=== PATIENT | female | born 1930 | race Caucasian/White ===

== ENCOUNTER 2017-06-04 13:28 | Emergency (ER) | payer MEDICARE, BC ==
[2017-06-04 13:59] LABS: #Basophils 0.1 thou/uL (0.0-0.2); #Eosinphils 0.1 thou/uL (0.0-0.7); #Lymphocytes 1.9 thou/uL (1.20-3.40); #Monocytes 0.5 thou/uL (0.11-0.59); #Neutrophils 4.1 thou/uL (1.40-6.50); %Basophils 0.8 % (0.0-1.0); %Lymphocytes 28.7 % (21.0-51.0); %Monocytes 8.2 % (0.0-10.0); Mean Platelet Volume 7.5 fL (7.4-10.4); Red Blood Cell (RBC) Count 4.19 mill/uL (4.20-5.40); White Blood Cell (WBC) Count 6.6 thou/uL (4.8-10.8)
[2017-06-04 14:25] LABS: ALT (SGPT) 10 U/L (8-55); AST (SGOT) 15 U/L (5-34); Alkaline Phosphatase 73 U/L (40-150); Anion Gap 13 mmol/L (10-20); BUN (Urea Nitrogen) 22 mg/dL (9.8-20.1); Bilirubin, Total 0.3 mg/dL (0.2-1.2); CK (CPK) 67 U/L (29-168); Calc. Creatinine Clearance 0 mL/min (70-130); Calcium 8.9 mg/dL (7.8-10.44); Carbon Dioxide 23 mmol/L (23-31); Chloride 105 mmol/L (98-107); Estimated GFR-MDRD 56; Globulin 3.4 g/dL (2.4-3.5); Protein, Total 7.6 g/dL (6.0-8.3)
[2017-06-04 14:30] LABS: Troponin I Less than 0.010 ng/mL (< 0.028)
[2017-06-04 15:07] LABS: Bilirubin Negative (Negative); Blood, Urine Negative (Negative); Glucose, Urine (Dipstick) Negative (Negative); Ketone, Urine Negative (Negative); Nitrite Negative (Negative); Protein, Urine (Dipstick) Negative (Neg-Trace); Urobilinogen 0.2 mg/dL (0.2-1.0)
[2017-06-04] MEDS ORDERED: Meclizine HCl 25 MG TAB ONE (15:15)
--- NOTE | 2017-06-04 15:30 | RAD ---
CHEST ONE VIEW: History: 87-year-old female with weakness, dizziness, slurred speech, Comparison: 06-29-09 FINDINGS: Atherosclerosis of the aorta. Old granulomatous disease. Heart size is within normal limits. The pat gs are clear. IMPRESSION: No acute intrathoracic disease. POS: OFF
--- NOTE | 2017-06-04 15:45 | CT ---
CT HEAD NONCONTRAST: Date: 06/04/17 COMPARISON: 06/29/09. INDICATION: Emergency exam, dizziness, slurred speech. FINDINGS: There is redemonstration of moderate chronic microvascular ischemic disease of the cerebral white ma tter. Ventricular system is age-appropriate in size. There is no intracranial hemorrhage, mass effec t, or midline shift. IMPRESSION: 1. No acute intracranial hemorrhage or mass effect. 2. Moderate chronic microvascular ischemic disease. POS: HODA
== END 2017-06-04 16:21 | disposition home or self-care (01) ==
LOC: ERS 13:28
DX: R42 Dizziness and giddiness (principal); I10 Essential (primary) hypertension
CPT/HCPCS: 36415; 70450; 71010; 80053; 81003; 82553; 84484; 85025; 93005; 94760

== ENCOUNTER 2017-08-23 13:55 | Inpatient (IN) | payer MEDICARE, BC ==
[2017-08-23] MEDS ORDERED: Albuterol Sulfate 2.5 mg/3 ml Neb ONE (14:16)
[2017-08-23 14:21] LABS: Actual Bicarbonate (HCO3a) 22.5 mEq/L (22-26); Base Excess (BEa) -0.4 mEq/L (0 (+/-) 2.5); CO2 Tension 29.8 mmHg (35.0-45.0); Calcium, Ionized 1.1 mmol/L (1.12-1.30); Hemoglobin (Hb) 7.9 g/dL (12.0-16.0); O2 Tension (PaO2) 105.5 mmHg (80.0-100.0)
[2017-08-23 14:32] LABS: Analyzer IN Cardio ER; Puncture Site RRA
[2017-08-23] MEDS ORDERED: Dexamethasone 4 mg/ml Vial ONE (14:36)
[2017-08-23] MEDS ORDERED: Magnesium Sulfate 2 GM/NS 0.9% 50 ML BAG ONE (14:37)
[2017-08-23 14:53] LABS: PTT 34.6 SEC (22.9-36.1)
[2017-08-23 14:56] LABS: Hemoglobin 10.4 g/dL (12.0-16.0); Mean Corpuscular HGB CONC 32.7 g/dL (32.0-36.0); Mean Corpuscular Hemoglobin 30.8 pg (27.0-31.0); Mean Platelet Volume 6.8 fL (7.4-10.4); Platelet Count 507 thou/uL (130-400); Red Blood Cell (RBC) Count 3.37 mill/uL (4.20-5.40); White Blood Cell (WBC) Count 17.9 thou/uL (4.8-10.8)
[2017-08-23 14:58] LABS: ALT (SGPT) 28 U/L (8-55); AST (SGOT) 18 U/L (5-34); Albumin 3.2 g/dL (3.4-4.8); Alkaline Phosphatase 132 U/L (40-150); Anion Gap 19 mmol/L (10-20); BUN (Urea Nitrogen) 12 mg/dL (9.8-20.1); Bilirubin, Total 0.4 mg/dL (0.2-1.2); CK (CPK) 71 U/L (29-168); Calc. Creatinine Clearance 0 mL/min (70-130); Calcium 8.5 mg/dL (7.8-10.44); Carbon Dioxide 22 mmol/L (23-31); Chloride 104 mmol/L (98-107); Estimated GFR-MDRD 62; Globulin 3.3 g/dL (2.4-3.5); Glucose 109 mg/dL (83-110); INR-International Normal Ratio 1.1; Lipase 4 U/L (8-78); Potassium 3.8 mmol/L (3.5-5.1); Protein, Total 6.5 g/dL (6.0-8.3); Prothrombin Time 13.9 SEC (12.0-14.7); Sodium 141 mmol/L (136-145)
--- NOTE | 2017-08-23 15:00 | RAD ---
PORTABLE CHEST 1 VIEW: DATE: 08/23/17. TIME: 2:35 p.m. HISTORY: Shortness of breath. FINDINGS: Comparison is made with the exam of 06/04/17. There has been interval development of patchy consolidation in the right lower lobe with accompanying right pleural effusion. The heart size is stable. The aorta is tortuous. The left lung is unremar kable. IMPRESSION: Right-sided pneumonia. POS: BYRON
[2017-08-23 15:02] LABS: CKMB 1.2 ng/mL (0-6.6); Troponin I Less than 0.010 ng/mL (< 0.028)
[2017-08-23 15:08] LABS: D-Dimer Test 3.49 *mcg/mL (0.27-0.43)
[2017-08-23 15:20] LABS: Band 6 % (5-11); Lymphocytes 4 % (21-51); MDiff Complete? YES; Metamyelocyte 1 % (0-0); Monocytes 8 % (0-10); Neutrophil 81 % (42-75); PLT Morphology Comment Appears Increased
[2017-08-23] MEDS ORDERED: cefTRIAXone\\ROCEPHIN 1 GM, Syringe 0.4 ML in Sterile Water 9.6 ML SLOW IVP SCH (16:45)
[2017-08-23 17:47] LABS: Bilirubin Negative (Negative); Blood, Urine Negative (Negative); Clarity CLEAR (Clear); Glucose, Urine (Dipstick) Negative (Negative); Leukocyte Large (Negative); Nitrite Negative (Negative); Protein, Urine (Dipstick) Negative (Neg-Trace); Specific Gravity, Urine 1.016 (1.002-1.036)
[2017-08-23 17:49] LABS: Bacteria/HPF None Seen HPF (None Seen); Hyaline Casts/LPF 0-3 HYALINE CAST LPF (0-3 Hyaline); Squamous Epithelial 0-3 HPF (0-3); WBC/HPF 21-50 HPF (0-3)
--- NOTE | 2017-08-23 17:51 | HP ---
CHIEF COMPLAINT: Shortness of breath. HISTORY OF PRESENT ILLNESS: This is an 87-year-old elderly white female who is living by herself at home. She has been having some cough and cold for the past 1 week and last , she went to [facility] physician's office who initially tested the patient for influenza which was negative, but s he prophylactically treated her with Tamiflu. The patient was having persistent fevers of 102 at [place] e associated with worsening shortness of breath and weakness. She decided to come to the ER today al erwin with her daughter and she was noted to be very hypoxic in the 80s on room air. The patient was s tarted on nasal cannula oxygen and a chest x-ray was done showing an evidence of pneumonia on the rig ht lung. She has elevated white count of 17,000. The patient looked pretty septic. She denies [place] sood any chest pain at this time. She continues to have shortness of breath and cough and nonproductiv e sputum. The patient has no history of hypertension which is well controlled. She did not have any recent hos pitalization, but she does have a previous hospitalization for food poisoning. PAST MEDICAL HISTORY: 1. History of hypertension. 2. Osteoarthritis. 3. Chronic low back pains. PAST SURGICAL HISTORY: 1. Appendectomy. 2. Tonsillectomy. 3. Partial hysterectomy. 4. Cholecystectomy. 5. Left knee replacement surgery. 6. Hernia repair and cataract surgery. SOCIAL HISTORY: The patient is not a known smoker. No history of alcohol, no history of illicit jermain g use. She lives independently by herself. FAMILY HISTORY: No significant family history of any coronary artery disease or any cancers. HOME MEDICATIONS: 1. Alprazolam 0.5 mg p.r.n. for anxiety. 2. Amlodipine 10 mg p.o. daily. 3. Aspirin 81 mg p.o. daily. 4. Biotin 2000 mcg capsule daily. 5. Calcium carbonate 1 tablet daily. ALLERGIES: ADHESIVE TAPES and HYDROCODONE. REVIEW OF SYSTEMS: All 10 systems are reviewed with the patient thoroughly and found to be negative at this time systems reviewed HEENT, CVS, NAIL FEEDER, respiratory, GI, , musculoskeletal, skin, neurologic , psychiatric. The following complete review of systems was negative, unless otherwise mentioned in the HPI or below: Constitutional: Weight loss or gain, sense of well-being, ability to conduct usual activities, exerc ise tolerance. Skin/Breast: Rash, itching, changes in hair growth or loss, nail changes, breast lumps, tenderness, swelling, nipple discharge. Eyes: Vision, double vision, tearing, blind spots, pain. ENT/Mouth: Headaches (location, time of onset, duration, precipitating factors), vertigo, lightheadedness, injury. Vision, double vision, tearing, blind spots, pain, nose b leeding, colds, obstruction, discharge, dental difficulties, gingival bleeding, dentures, neck stiffn ess, pain, tenderness, masses in thyroid or other areas Cardiovascular: Precordial pain, substernal distress, palpitations, syncope, dyspnea on exertion, or thopnea, nocturnal paroxysmal dyspnea, edema, cyanosis, hypertension, heart murmurs, varicosities, ph lebitis, claudication. Respiratory: Pain, shortness of breath, wheezing, stridor, cough, hemoptysis, fever or night sweats Gastrointestinal: Poor appetite, dysphagia, indigestion, abdominal pain, heartburn, eructation, naus ea, vomiting, hematemesis, jaundice, constipation, or diarrhea, abnormal stools (cami-colored, tarry, bloody, greasy, foul smelling), flatulence, hemorrhoids, recent changes in bowel habits. Genitourinary: Urgency, frequency, dysuria, nocturia, hematuria, polyuria, oliguria, unusual (or kehinde nge in) color of urine, stones, hesitancy, change in size of stream, dribbling, acute retention or in continence, libido, potency. Musculoskeletal: Pain, swelling, redness or heat of muscles or joints, limitation, of motion, muscular weakness, atrophy, cramps. Neurologic/Psychiatric: Convulsions, paralyses, tremor, incoordination, parasthesias, difficulties w ith memory of speech, sensory or motor disturbances, or muscular coordination (ataxia, tremor), emoti onal problems, anxiety, depression, previous psychiatric care, unusual perceptions, hallucinations. Allergy/Immunologic: Skin rash, anemia, bleeding tendency, polydipsia, polyuria, intolerance to heat or cold. PHYSICAL EXAMINATION: VITAL SIGNS: Blood pressure is 110/80, heart rate is 88, respiratory rate is 20, saturation is 92% o n 3 liters. GENERAL: The patient is seen lying in the bed supine, does not appear to be in any acute distress at this time. HEENT: Atraumatic, normocephalic. PERRLA. Extraocular movements are intact. Oral mucosa is pink a nd moist. CARDIOVASCULAR: S1, S2 normal. No murmurs, rubs or gallops. LUNGS: Bilateral air entry was reduced with wheezing noted in the right lung, greater than the left lung with dullness and percussion on the right lower lung. No signs of any acute respiratory distres s were noted. No use of any accessory muscles of respiration. ABDOMEN: Soft and nontender. No guarding, no rebound tenderness. Bowel sounds normal. MUSCULOSKELETAL: No calf tenderness or pedal edema. EXTREMITIES: No joint tenderness. MUSCULOSKELETAL: No joint swelling. SKIN: No cyanosis, no erythema, no rash, no pallor. NAIL FEEDER: Cranial nerve examination II-XII intact. No focal deficits were noted. NECK: No thyromegaly. No lymphadenopathy was noted. No JVD was noted. PSYCHIATRIC: No signs of suicidal ideation. No signs of junior. No signs of depression. LABORATORY DATA: Sodium is 141, potassium 3.8, chloride is 104, bicarbonate is 22, BUN is 12, creati nine 0.87, blood sugar 109. WBC 17.9, hemoglobin is 10.4, hematocrit 31.6, platelets 507. His ABG w as 7.5, pCO2 of 29.8, and pO2 is 205. ASSESSMENT: 1. Acute hypoxic respiratory failure. 2. Acute right lung pneumonia, possibly aspiration type. 3. Hypertension, well controlled. 4. Acute hypoxia, rule out pulmonary embolism. 5. Chronic osteoarthritis. PLAN: 1. The plan is to start the patient on IV fluids at this time, normal saline at 100 mL hour. Rajeev t has evidence of sepsis with elevated white count of 17,000, most likely from pneumonia. We will st art the patient aggressively on IV antibiotics with cefepime 1 gram b.i.d. and levofloxacin 50 mg IV daily. 2. We will start the patient on DuoNebs and albuterol nebulizer treatments as needed. We will close ly monitor the patient. If any worsening, we will start the patient on the BiPAP. 3. The patient has hypoxia which is new. We will continue to titrate oxygen and will continue the p atient on incentive spirometry every 1 hour for 10 minutes. We will encourage the patient to use spi rometry. 4. The patient has elevated D-dimer. The patient has been ordered a CTA to look for any evidence of pulmonary embolism and will start the patient on Lovenox at that time. Patient has no risk factors for PE as she is very mobile at home. 5. We will continue with PT and OT evaluation and look for retirement placement if the patient gets progressively weaker. 6. DVT prophylaxis, Lovenox 40 mg subcu daily. Dictating physician, Nash Mullen, has spent 70 minutes of this patient of this one hour as a critical care time.
[2017-08-23] MEDS ORDERED: Ondansetron HCl/PF 4 MG/2 ML Vial IVP PRN (18:14)
[2017-08-23] MEDS ORDERED: HYDROcodone/Acetaminophen 5/325 mg Tablet PO PRN (18:14)
[2017-08-23] MEDS ORDERED: Senokot 8.6 MG TAB PO PRN (18:14)
[2017-08-23] MEDS ORDERED: Bisacodyl 5 MG TAB PO PRN (18:14)
[2017-08-23] MEDS ORDERED: Guaifenesin DM 100-10/5 ML UDCUP PO PRN (18:14)
--- NOTE | 2017-08-23 18:25 | CT ---
EXAM: CT ANGIOGRAM OF THE CHEST 08/23/17 COMPARISON: 06/25/13 HISTORY: Shortness of breath. Cough x1 week. Intermittent fever. TECHNIQUE: CT angiogram of the chest is performed in the axial plane. Coronal and oblique 3 dimensional reformat ian images are submitted for interpretation. FINDINGS: Nonenlarged prevascular, paratracheal lymph nodes. Stable calcified lymph nodes in the mediastinum. E nlarged right hilar lymph node measuring 2.1 x 1.5 cm. Heart size is normal. No significant pericardi al fluid. Coronary artery calcifications are identified. The thoracic aorta and abdominal aorta have a normal caliber. No periaortic fat stranding. Hypodensit y in the left hepatic lobe measuring 1.5 x 2.2 cm, compatible with a cyst. Remaining solid organs are unremarkable. Small right and trace left sided pleural effusion. Consolidation in both lower lobes is felt to be du e to atelectasis. Component of pneumonia in both lower lobes cannot be excluded. There is opacificati on of right lower lobe bronchi, possibly due to secretions or mucus material. Intrabronchial masses c annot be excluded. A component of the consolidation in the right lower lobe may be due to post obstru ctive atelectasis. Patchy ground glass opacities in the right upper lobe. Trachea and central bronchi are patent. There is mild narrowing of the main stem bronchus. Adequate contrast opacification of the pulmonary arterial system to the level of the segmental arteri es. No filling defect to suggest thromboembolism. IMPRESSION: 1. No evidence of pulmonary artery embolism to the level of segmental arteries. 2. Narrowing of the right main stem bronchus with opacification of right lower lobe bronchi. Fin dings may represent mucus plug or secretions. However, endobronchial lesions cannot be excluded. Ther e is consolidation of the right lower lobe which may be due to atelectasis, pneumonia. Slightly heter ogeneous enhancement is noted suggesting possible areas of parenchymal necrosis. 3. Consolidation of the left lower lobe likely due to atelectasis or pneumonia. 4. Enlarged right hilar lymph node. POS: BYRON
[2017-08-23 19:01] VITALS: BMI 26.6
[2017-08-23] MEDS: Sodium Chloride 0.9% 1,000 ML IV SCH (20:36)
[2017-08-23] MEDS: guaiFENesin ER 600 MG TAB PO SCH (20:39)
[2017-08-23] MEDS: Famotidine/PF 20 mg/2ml Vial SLOW IVP SCH (20:39)
[2017-08-23] MEDS ORDERED: Cefepime 2 GM, Syringe 2.5 ML in Sterile Water 10 ML SLOW IVP SCH (21:00)
[2017-08-23] MEDS ORDERED: Cefepime 2 GM in Sodium Chloride 0.9% 100 ML IVPB SCH (21:00)
[2017-08-24] MEDS: ALPRAZolam 0.5 MG TAB PO PRN ×2 (01:38→17:18)
[2017-08-24] MEDS: Albuterol Sulfate 2.5 mg/3 ml Neb NEB SCH ×10 (04:53→22:15)
[2017-08-24] MEDS: Sodium Chloride 0.9% 1,000 ML IV SCH (05:15)
[2017-08-24 06:53] LABS: Anion Gap 15 mmol/L (10-20); BUN (Urea Nitrogen) 13 mg/dL (9.8-20.1); Calc. Creatinine Clearance 61 mL/min (70-130); Calcium 8.4 mg/dL (7.8-10.44); Carbon Dioxide 19 mmol/L (23-31); Chloride 108 mmol/L (98-107); Estimated GFR-MDRD 72; Glucose 143 mg/dL (83-110); Potassium 3.8 mmol/L (3.5-5.1); Sodium 138 mmol/L (136-145)
[2017-08-24 07:34] LABS: Band 6 % (5-11); Hemoglobin 9.6 g/dL (12.0-16.0); Lymphocytes 5 % (21-51); MDiff Complete? YES; Mean Corpuscular HGB CONC 33.1 g/dL (32.0-36.0); Mean Corpuscular Volume 93.7 fl (81.0-99.0); Mean Platelet Volume 6.7 fL (7.4-10.4); Monocytes 6 % (0-10); Neutrophil 83 % (42-75); Platelet Count 475 thou/uL (130-400); RBC Distribution Width 13.1 % (11.5-14.5); Red Blood Cell (RBC) Count 3.09 mill/uL (4.20-5.40); White Blood Cell (WBC) Count 15.4 thou/uL (4.8-10.8)
[2017-08-24] MEDS ORDERED: FLU VACC TS2017-18 (>65YR) 0.5 ML SYRINGE IM ONE (09:00)
[2017-08-24] MEDS ORDERED: Cefepime 2 GM, Syringe 2.5 ML in Sterile Water 10 ML SLOW IVP SCH (09:00)
[2017-08-24] MEDS: Amlodipine 10 MG TAB PO SCH (09:47)
[2017-08-24] MEDS: guaiFENesin ER 600 MG TAB PO SCH ×2 (09:47→19:54)
[2017-08-24] MEDS: Calcium Carbonate + Vit D 1 TAB PO SCH (09:48)
[2017-08-24] MEDS: Aspirin 81 mg Enteric Coated Tablet PO SCH (09:48)
[2017-08-24] MEDS: Biotin [Biotin] 2,500 MCG PO SCH (09:54)
[2017-08-24] MEDS: Enoxaparin Sodium 40 MG/0.4 ML SYRINGE SC SCH (10:02)
[2017-08-24] MEDS: Famotidine/PF 20 mg/2ml Vial SLOW IVP SCH ×2 (10:02→19:54)
--- NOTE | 2017-08-24 10:23 | PDOC.PN ---
- Subjective Encounter Start Date: 08/24/17 Encounter Start Time: 07:50 -: old records requested/rev Patient seen and examined. No new complaints. No overnight events - Objective Resuscitation Status: Resuscitation Status FULL:Full Resuscitation MAR Reviewed: Yes Vital Signs & Weight: Vital Signs (12 hours) Temp Pulse Resp BP BP BP Pulse Ox 08/24/17 10:08 92 L 08/24/17 10:05 100 12 08/24/17 09:47 100 122/71 08/24/17 08:00 97.6 F 99 17 122/71 92 L 08/24/17 04:32 97.6 F 119 H 20 135/70 94 L 08/24/17 03:13 116 H 20 96 08/24/17 00:00 98.2 F 120 H 22 H 155/78 H 96 08/23/17 22:50 111 H 20 93 L Weight Weight 160 lb Result Diagrams: 08/24/17 06:07 08/24/17 06:07 Radiology Reviewed by me: Yes Phys Exam - Physical Examination Constitutional: NAD HEENT: PERRLA, moist MMs, sclera anicteric Neck: no JVD, supple Respiratory: no wheezing, no rhonchi right side rales+ Cardiovascular: RRR, no significant murmur, no rub Gastrointestinal: soft, non-tender, no distention, positive bowel sounds Musculoskeletal: no edema, pulses present Neurological: non-focal, normal sensation, moves all 4 limbs Lymphatic: no nodes Psychiatric: normal affect, A&O x 3 Skin: no rash, normal turgor Dx/Plan (1) Acute respiratory failure with hypoxia Code(s): J96.01 - ACUTE RESPIRATORY FAILURE WITH HYPOXIA Status: Acute (2) Right lower lobe pneumonia Code(s): J18.1 - LOBAR PNEUMONIA, UNSPECIFIED ORGANISM Status: Acute (3) Sepsis with acute organ dysfunction Code(s): A41.9 - SEPSIS, UNSPECIFIED ORGANISM; R65.20 - SEVERE SEPSIS WITHOUT SEPTIC SHOCK Status: Acute (4) Anemia, normocytic normochromic Code(s): D64.9 - ANEMIA, UNSPECIFIED Status: Chronic (5) Hypertension Code(s): I10 - ESSENTIAL (PRIMARY) HYPERTENSION Status: Chronic - Plan cont current plan of care, continue antibiotics, respiratory therapy * continue cefepime and change to 2 gm iv bid * continue levaquin * pulmonary consult * medication reviewed as below * symptomatic treatment * follow culture * pt is improving. Review of Systems - Review of Systems Constitutional: negative: fever, chills, sweats, weakness, malaise, other ENT: negative: Ear Pain, Ear Discharge, Nose Pain, Nose Discharge, Nose Congestion, Mouth Pain, Mouth Swelling, Throat Pain, Throat Swelling, Other Respiratory: Cough, SOB with Excertion. negative: Dry, Shortness of Breath, Hemoptysis, Pleuritic Pain, Sputum, Wheezing Cardiovascular: negative: chest pain, palpitations, orthopnea, paroxysmal nocturnal dyspnea, edema, light headedness, other Gastrointestinal: negative: Nausea, Vomiting, Abdominal Pain, Diarrhea, Constipation, Melena, Hematochezia, Other Genitourinary: negative: Dysuria, Frequency, Incontinence, Hematuria, Retention , Other Musculoskeletal: negative: Neck Pain, Shoulder Pain, Arm Pain, Back Pain, Hand Pain, Leg Pain, Foot Pain, Other Skin: negative: Rash, Lesions, Abad, Bruising, Other Neurological: negative: Weakness, Numbness, Incoordination, Change in Speech, Confusion, Seizures, Other - Medications/Allergies Allergies/Adverse Reactions: Allergies Allergy/AdvReac Type Severity Reaction Status Date / Time adhesive tape Allergy Intermediate REDNESS, Verified 02/13/17 13:09 BRUISES EASILY hydrocodone Allergy Mild NOSE RED Verified 02/13/17 13:09 AND ITCHY Medications: Current Medications Hydrocodone Bitart/Acetaminophen ([place] 5/325) 1 tab PO Q4H PRN PRN Reason: Moderate Pain (4-6) Albuterol Sulfate (Ventolin) 2.5 mg NEB Q2HR [facility] Last Admin: 08/24/17 10:10 Dose: Not Given Albuterol/Ipratropium (Duoneb) 3 ml NEB [id number] [facility] Last Admin: 08/24/17 10:05 Dose: 3 ml Alprazolam (Xanax) 0.5 mg PO PRN PRN PRN Reason: Anxiety Last Admin: 08/24/17 01:38 Dose: 0.5 mg Amlodipine Besylate (Norvasc) 10 mg PO DAILY [facility] Last Admin: 08/24/17 09:47 Dose: 10 mg Aspirin (Ecotrin) 81 mg PO DAILY [facility] Last Admin: 08/24/17 09:48 Dose: 81 mg Bisacodyl (Dulcolax) 10 mg PO DAILYPRN PRN PRN Reason: Constipation Calcium/Vitamin D (Caltrate 600 + Vit D) 1 tab PO DAILY [facility] Last Admin: 08/24/17 09:48 Dose: 1 tab Enoxaparin Sodium (Lovenox) 40 mg SC 0900 [facility] Last Admin: 08/24/17 10:02 Dose: 40 mg Famotidine (Pepcid) 20 mg SLOW IVP Q12HR [facility] Last Admin: 08/24/17 10:02 Dose: Not Given Guaifenesin (Mucinex) 1,200 mg PO Q12HR [facility] Last Admin: 08/24/17 09:47 Dose: 1,200 mg Guaifenesin/Dextromethorphan (Robitussin Dm) 15 ml PO Q4H PRN PRN Reason: Cough Levofloxacin 750 mg/ Device 150 mls @ 100 mls/hr IVPB Q2D [facility] Cefepime HCl 2 gm/ Syringe 2.5 (ml/ Sterile Water) 12.5 mls @ 150 mls/hr SLOW IVP Q12HR [facility] Last Admin: 08/24/17 09:48 Dose: 12.5 mls Ondansetron HCl (Zofran) 4 mg IVP Q6H PRN PRN Reason: Nausea/Vomiting Biotin [Biotin] 2, (500 Mcg) 1 each PO DAILY [facility] Last Admin: 08/24/17 09:54 Dose: Not Given Senna (Senokot) 2 tab PO HSPRN PRN PRN Reason: Constipation
--- NOTE | 2017-08-24 15:24 | PQF ---
DATE: 08-24-17 ATTN: DR. RUY WILLIS Please exercise your independent, professional judgment in responding to the clarification form. Clinical indicators are provided on the bottom of this form for your review Please check appropriate box(s): [ ] Aspiration Pneumonia [ x ] Empirically treating Gram Negative Pneumonia [ ] Other diagnosis [ ] Unable to determine In addition, please specify: Present on Admission (POA): [ x] Yes [ ] No [ x] Unable to determine For continuity of documentation, please document condition throughout progress notes and discharge summary. Thank You. CLINICAL INDICATORS - SIGNS / SYMPTOMS / LABS ER DIAGNOSIS: SEPSIS, HYPOXIA, PNEUMONIA ER DOCUMENTATION: PT REPORTS COUGH X 1 WEEK AND SOME INTERMITTENT FEVERS AT HOME. H&P: ACUTE RIGHT LUNG PNEUMONIA, POSSIBLY ASPIRATION TYPE PN DR. WILLIS 08-24-17: ACUTE RLL PNEUMONIA WBC: 08-23-17: 17.9 08-24-17: 15.4 RISK FACTORS: ER DOCUMENTATION: PT REPORTS COUGH X 1 WEEK AND SOME INTERMITTENT FEVERS AT HOME. ER DOCUMENTATION: FEVER, O2 SAT 86% ON RA, SOB , NEG FOR FLU BUT TREATED WITH TAMIFLU AND TOOK FULL COURSE OF MEDICATION TREATMENTS: (08-23-17) ALBUTEROL NEBS, DUONEBS (08-24-17) CEFEPIME IV, LEVAQUIN (OCT) IVF PULMONARY CONSULT (This form is maintained as a part of the permanent medical record) 2014 [employer]. All Rights Reserved [email or web address] Office: [phone] [facility]OSPITALeJsus
--- NOTE | 2017-08-24 15:31 | PQF ---
DATE: 08-24-17 ATTN : DR. RUY WILLIS Please exercise your independent, professional judgment in responding to the clarification form. Clinical indicators are provided on the bottom of this form for your review Please check appropriate box(s): [ ] UTI [ x ] Contaminated urine specimen without UTI [ ] Other diagnosis [ ] Unable to determine In addition, please specify: Present on Admission (POA): [ ] Yes [ ] No [ x ] Unable to determine For continuity of documentation, please document condition throughout progress notes and discharge summary. Thank You. CLINICAL INDICATORS - SIGNS / SYMPTOMS / LABS URINE: 08-23-17: UR LEUKOCYTE ESTERASE: LARGE H URINE WBC: 21-50 H ER DOCUMENTATION: HISTORIAN REPORTS FEVER RISK FACTORS: ER DOCUMENTATION: PT REPORTS COUGH X 1 WEEK AND SOME INTERMITTENT FEVERS AT HOME. PT PUT ON TAMIFLU AND TOOK FULL COURSE OF MEDICATION H&P: PT IN WITH ACUTE HYPOXIC RESPIRATORY FAILURE , PNA, SEPSIS TREATMENT: (MAR) CEFEPIME, IVF, (This form is maintained as a part of the permanent medical record) 2014 [employer] All Rights Reserved [email or web address] Office: [phone] [facility]OSPITALJesus
[2017-08-24] MEDS ORDERED: predniSONE 20 MG TAB PO SCH (19:15)
[2017-08-24] MEDS: Piperacillin/Tazobactam 3.375 GM in Sodium Chloride 0.9% 100 ML IVPB SCH (19:53)
--- NOTE | 2017-08-25 00:01 | CON ---
DATE OF CONSULTATION: 08/24/2017 SERVICE: Pulmonary medicine. REASON FOR CONSULT: Hypoxemia. HISTORY OF PRESENT ILLNESS: The patient is an 87-year-old white female. She was in her usual state of health until roughly 7 days prior to admission. She presented to an urgent care clinic. She was tested for the flu, but it was negative. Either way, because she had a viral prodrome, she was initially on Tamiflu. She completed that course of antiviral medication. She continued to get sicker and sicker throughout the week. As such, she presented to the emergency department yesterday. She was coughing up green sputum, yellow sputum , and clear sputum. She was having fevers to 102 and noted a headache. She did not have the myalgias or rigors. That being said, she was completely uncomfortable. She came to emergency department. She was admitted because of hypoxemia. Overnight, she had a profound improvement in symptoms. She currently denies any fevers, chills, nausea or vomiting or chest discomfort. PAST MEDICAL HISTORY: 1. Hypertension. 2. Osteoarthritis. 3. Chronic low back pain. PAST SURGICAL HISTORY: 1. Appendectomy. 2. Tonsillectomy. 3. Partial hysterectomy. 4. Cholecystectomy. 5. Left knee replacement surgery. 6. Hernia repair. 7. Cataract surgery. SOCIAL HISTORY: She has a minimal smoking history over 60 year ago. She denies any alcohol or illegal drugs use and has no exposure to chemical, dust, asbestos or tuberculosis. She is independent in her ADLs. FAMILY HISTORY: Noncontributory. ALLERGIES: TAPE ADHESIVES and HYDROCODONE. MEDICATIONS LIST: Her inpatient medications were reviewed. Multiple updates were made. REVIEW OF SYSTEMS: General, head, ears, eyes, nose, throat, cardiovascular, respiratory, GI, , musculoskeletal, neurologic and skin is negative except as mentioned in the HPI. PHYSICAL EXAMINATION: VITAL SIGNS: Afebrile, pulse 100, blood pressure 126/71, respirations 18, saturation 93% on 2 liters nasal cannula. GENERAL: The patient is awake, and alert, in no apparent distress. LUNGS: Decent air entry. Crackles and rhonchi are both present. I also hear some wheezing, but more inspiratory. With cough, the wheezing changes in character. HEART: Normal rate. Regular. ABDOMEN: Soft, nontender, nondistended. Bowel sounds are positive. MUSCULOSKELETAL: No cyanosis or clubbing. There is trace of 1+ pitting in the bilateral lower extremities. NEUROLOGIC: Grossly nonfocal. LABORATORY DATA: WBC is down trending to 15.4, hemoglobin 9.6, platelets 475, 000. Neutrophils were 83% with 6% bands. INR 1.1. PH of 7.50, pCO2 of 29, pO2 of 105 on non-rebreather mask at that time. Lactate is negative. Basic metabolic profile is unremarkable. BNP has slightly elevated 113. Liver function studies were unremarkable. Urinalysis is negative. Respiratory culture is unremarkable today. Blood culture x2 and urine culture is negative. There are multiple different species that were identified in a good sputum sample. Influenza A and B were negative. ASSESSMENT: 1. Acute hypoxic respiratory failure. 2. Acute bronchitis, likely secondary to viral illness. 3. Community-acquired pneumonia. 4. Bronchiectasis with acute exacerbation. IMAGING: CT of the chest was reviewed. There was no evidence of pulmonary embolism. The anterior segment of the right upper lobe has some ground glass changes as well as interstitial thickening. There is a consolidating lesion in that area. There is a tree-in-bud opacification throughout the right middle lobe, and the right lower lobe. There is over consolidating changes that are also present. There is evidence of bronchiectasis throughout bilateral lower lung schaffer likely consistent with chronic aspiration related changes as it does not involve any of the anterior segments. PLAN: We will put patient on some antibiotics, directed at aspiration related disease processes. Physiotherapy will be added to the patient's regimen. I will get a respiratory virus panel to look for any other viral illnesses. Pulmonary critical care will continue to follow while the patient remains inhouse. Ultimately, she will require a repeat CT of the chest in 6 weeks to review the mediastinal lymph node that was marginally elevated, and to verify the infiltrate has resolved. She is wheezing quite heavily. As such, I will treat this as though this is an episode of acute bronchitis and steroids will be initiated. IV fluids will be interrupted if she is tolerating p.o. just fine , I will give her 1 dose of Lasix tomorrow morning. Physical therapy will be continued and we will try to get her out of bed into a chair 3 times daily whenever she is eating. 70 minutes have been devoted to this patient in various activities. For at least half of this time, I was at the bedside in direct patient interaction or coordinating care with the care team. For the remainder of the time I was immediately available to the patient in the hospital unit. AMNA
[2017-08-25] MEDS: Albuterol Sulfate 2.5 mg/3 ml Neb NEB SCH ×11 (00:22→22:30)
[2017-08-25] MEDS: Piperacillin/Tazobactam 3.375 GM in Sodium Chloride 0.9% 100 ML IVPB SCH ×4 (01:03→20:52)
[2017-08-25 06:41] LABS: Anion Gap 13 mmol/L (10-20); BUN (Urea Nitrogen) 18 mg/dL (9.8-20.1); Calc. Creatinine Clearance 58 mL/min (70-130); Calcium 8.7 mg/dL (7.8-10.44); Carbon Dioxide 23 mmol/L (23-31); Chloride 108 mmol/L (98-107); Estimated GFR-MDRD 69; Glucose 107 mg/dL (83-110); Sodium 140 mmol/L (136-145)
[2017-08-25 07:28] LABS: Band 8 % (5-11); Hemoglobin 10.1 g/dL (12.0-16.0); Lymphocytes 21 % (21-51); MDiff Complete? YES; Mean Corpuscular HGB CONC 32.4 g/dL (32.0-36.0); Mean Corpuscular Hemoglobin 30.3 pg (27.0-31.0); Mean Corpuscular Volume 93.6 fl (81.0-99.0); Mean Platelet Volume 6.3 fL (7.4-10.4); Monocytes 4 % (0-10); Neutrophil 67 % (42-75); Platelet Count 607 thou/uL (130-400); RBC Distribution Width 13.1 % (11.5-14.5); Red Blood Cell (RBC) Count 3.32 mill/uL (4.20-5.40); White Blood Cell (WBC) Count 21.3 thou/uL (4.8-10.8)
[2017-08-25] MEDS: predniSONE 20 MG TAB PO SCH (08:50)
[2017-08-25] MEDS: Calcium Carbonate + Vit D 1 TAB PO SCH (08:53)
[2017-08-25] MEDS: Aspirin 81 mg Enteric Coated Tablet PO SCH (08:54)
[2017-08-25] MEDS: guaiFENesin ER 600 MG TAB PO SCH ×2 (08:54→20:53)
[2017-08-25] MEDS: Amlodipine 10 MG TAB PO SCH (08:54)
[2017-08-25] MEDS: Enoxaparin Sodium 40 MG/0.4 ML SYRINGE SC SCH (08:55)
[2017-08-25] MEDS: Famotidine/PF 20 mg/2ml Vial SLOW IVP SCH ×2 (08:56→20:53)
[2017-08-25] MEDS: Biotin [Biotin] 2,500 MCG PO SCH (08:56)
[2017-08-25] MEDS: ALPRAZolam 0.5 MG TAB PO PRN (11:04)
--- NOTE | 2017-08-25 13:44 | PDOC.PN ---
- Subjective Encounter Start Date: 08/25/17 Encounter Start Time: 13:42 Patient seen and examined, no new issues or complaints, all questions answered. - Objective Resuscitation Status: Resuscitation Status FULL:Full Resuscitation Vital Signs & Weight: Vital Signs (12 hours) Temp Pulse Resp BP Pulse Ox 08/25/17 12:11 100 16 08/25/17 09:04 97.6 F 100 12 128/77 92 L 08/25/17 08:54 96 08/25/17 08:45 111 H 16 08/25/17 08:40 97.6 F 96 12 92 L 08/25/17 04:00 98.1 F 97 19 119/69 92 L Weight Weight 158 lb 11.725 oz I&O: 08/24/17 08/25/17 08/26/17 06:59 06:59 06:59 Intake Total 750 Balance 750 Result Diagrams: 08/25/17 05:57 08/25/17 05:57 Phys Exam - Physical Examination Constitutional: NAD HEENT: PERRLA, moist MMs, sclera anicteric Neck: no nodes, no JVD Respiratory: wheezing present Cardiovascular: RRR, no significant murmur Gastrointestinal: soft, non-tender Musculoskeletal: no edema, pulses present Neurological: non-focal, normal sensation Lymphatic: no nodes Psychiatric: normal affect, A&O x 3 Dx/Plan (1) Acute respiratory failure with hypoxia Code(s): J96.01 - ACUTE RESPIRATORY FAILURE WITH HYPOXIA Status: Acute (2) Right lower lobe pneumonia Code(s): J18.1 - LOBAR PNEUMONIA, UNSPECIFIED ORGANISM Status: Acute (3) Anemia, normocytic normochromic Code(s): D64.9 - ANEMIA, UNSPECIFIED Status: Chronic (4) Hypertension Code(s): I10 - ESSENTIAL (PRIMARY) HYPERTENSION Status: Chronic - Plan * cont w/ current tx * wheezing still present, coughing still present * DC plans in 24-48hrs if symptomatically improved and clinically doing better * case and plan d/w patient and family at length, they understand and agree with this plan
--- NOTE | 2017-08-25 23:45 | PRG ---
DATE OF SERVICE: 08/25/2017 SERVICE: Pulmonary Medicine. INTERVAL HISTORY: The patient is doing fine from a respiratory standpoint. She is actually much imp roved. She is having fewer coughing fits, and she is not bringing up nearly as much yellow sputum an ymore. She denies any current fevers, chills, nausea or vomiting. She refused the prednisone yester day because she has a history of going "crazy on it." Otherwise, there has been no interval change t o her condition. PCR was positive for rhinovirus. PHYSICAL EXAMINATION: VITAL SIGNS: Afebrile, pulse 106, blood pressure 120/62, respirations 16, saturation 93% on 3 liters nasal cannula. GENERAL: The patient is awake and alert, in no apparent distress. LUNGS: Much improved air entry. There is decreased air entry at the right base currently. No prolo nged expiratory phase is present. Minimal crackles are there. HEART: Normal rate, regular. ABDOMEN: Soft, nontender, nondistended. Bowel sounds are positive. MUSCULOSKELETAL: No cyanosis or clubbing. No pitting in the bilateral lower extremities. NEUROLOGIC: Grossly nonfocal. LABORATORY DATA: WBC 21.3, hemoglobin 10.1, platelets 607,000. Band count is stable at 8%. Neutrop hil count has improved to 67%. INR 1.1. Basic metabolic profile is essentially unremarkable/stable. Respiratory virus panel is growing rhinovirus. ASSESSMENT: 1. Acute hypoxic respiratory failure. 2. Acute bronchitis, secondary to rhinovirus. 3. Community-acquired pneumonia. 4. Bronchiectasis with acute exacerbation. PLAN: We will continue antibiotics, nebulized medications. The patient is asking me not to do stero ids. I think this is reasonable given that she has had such a profound recovery and we have a viral illness that is the culprit here. Once she is off of oxygen, she can be discharged home. She will r equire repeat CT scan of the chest in 6 weeks with follow up with me at that time. We will continue our physiotherapy and increase her activity as much as tolerated.
[2017-08-26] MEDS: Albuterol Sulfate 2.5 mg/3 ml Neb NEB SCH ×6 (00:09→12:30)
[2017-08-26] MEDS: Piperacillin/Tazobactam 3.375 GM in Sodium Chloride 0.9% 100 ML IVPB SCH ×3 (01:56→13:54)
[2017-08-26 06:12] LABS: #Basophils 0.1 thou/uL (0.0-0.2); #Eosinphils 0.1 thou/uL (0.0-0.7); #Lymphocytes 2.7 thou/uL (1.20-3.40); #Monocytes 1.1 thou/uL (0.11-0.59); #Neutrophils 10.1 thou/uL (1.40-6.50); %Basophils 0.6 % (0.0-1.0); %Eosinophils 0.8 % (0.0-10.0); %Lymphocytes 19.2 % (21.0-51.0); %Neutrophils 71.3 % (42.0-75.0); Hemoglobin 9.6 g/dL (12.0-16.0); Mean Corpuscular HGB CONC 32.6 g/dL (32.0-36.0); Mean Corpuscular Hemoglobin 30.8 pg (27.0-31.0); Mean Corpuscular Volume 94.5 fl (81.0-99.0); Mean Platelet Volume 6.7 fL (7.4-10.4); Platelet Count 504 thou/uL (130-400); RBC Distribution Width 13.4 % (11.5-14.5); Red Blood Cell (RBC) Count 3.13 mill/uL (4.20-5.40); White Blood Cell (WBC) Count 14.2 thou/uL (4.8-10.8)
[2017-08-26 07:52] LABS: Anion Gap 17 mmol/L (10-20); BUN (Urea Nitrogen) 18 mg/dL (9.8-20.1); Calc. Creatinine Clearance 53 mL/min (70-130); Carbon Dioxide 24 mmol/L (23-31); Chloride 104 mmol/L (98-107); Estimated GFR-MDRD 63; Glucose 72 mg/dL (83-110); Sodium 141 mmol/L (136-145)
[2017-08-26] MEDS: predniSONE 20 MG TAB PO SCH (08:59)
[2017-08-26] MEDS: Amlodipine 10 MG TAB PO SCH (08:59)
[2017-08-26] MEDS: Famotidine/PF 20 mg/2ml Vial SLOW IVP SCH (09:00)
[2017-08-26] MEDS: Calcium Carbonate + Vit D 1 TAB PO SCH (09:00)
[2017-08-26] MEDS: Enoxaparin Sodium 40 MG/0.4 ML SYRINGE SC SCH (09:00)
[2017-08-26] MEDS: Aspirin 81 mg Enteric Coated Tablet PO SCH (09:00)
[2017-08-26] MEDS: guaiFENesin ER 600 MG TAB PO SCH (09:01)
[2017-08-26] MEDS: Biotin [Biotin] 2,500 MCG PO SCH (09:06)
[2017-08-26 12:25] VITALS: BP 123/75; TEMP 98.4
--- NOTE | 2017-08-26 13:38 | DIS ---
DATE OF ADMISSION: 08/23/2017 DATE OF DISCHARGE: 08/26/2017 ADMITTING DIAGNOSES: Shortness of breath, history of hypertension as well as osteoarthritis. DISCHARGE DIAGNOSES: 1. Shortness of breath secondary to pneumonia. 2. History of hypertension, stable. 3. History of osteoarthritis, stable. HOSPITAL COURSE: This is an 87-year-old female, who was admitted to the hospital due to a 4- to 5-da y history of cough and cold. Patient was admitted to the Internal Medicine team and started on antib iotics after imaging studies showed findings suggestive of pneumonia. Patient had a consolidation in the left lower lobe on image study, CT and x-ray. Patient was started on antibiotics as well as sup portive therapy with prednisone and antitussive medication. Patient had good response to medical the rapy. At point in time of discharge, the patient stated that she did not want to have any steroids g iven to her. Medical prescriptions were given for 5 more days of Levaquin as well as tessalon perles to be used p.r.n. for cough. The patient stated otherwise that she was stable and did not have any complaints and was ready to go home. Daughter at bedside. DISPOSITION: Home. MEDICATIONS: Resume home medications. Prescriptions given for Levaquin as well as tessalon perles. DIET: Cardiac diet. ACTIVITY: As tolerated. CONDITION: Stable. FOLLOWUP: PCP in 2 weeks. Case and plan discussed with patient and daughter at length. They understand and agree with this ruben n.
--- NOTE | 2017-09-15 15:14 | EKG ---
Test Reason : SOB Blood Pressure : / mmHG Vent. Rate : 104 BPM Atrial Rate : 104 BPM P-R Int : 162 ms QRS Dur : 082 ms QT Int : 346 ms P-R-T Axes : 050 023 036 degrees QTc Int : 454 ms Sinus tachycardia Otherwise normal ECG Confirmed by PARRIS ROBERTS, KARLOS ([id number]), manuscript editor LULÚ BRADY ([id number]) on 09/15/2017 3:14:16 PM Referred By: Confirmed By:KARLOS NYE MD
== END 2017-08-26 15:25 | disposition home or self-care (01) | DRG 871 ==
LOC: ERS 13:55 → SURG B 17:59
PROVIDERS: ADMIT Family Medicine; ATTEND Family Medicine
DX: A41.9 Sepsis, unspecified organism (principal); J15.6 Pneumonia due to other Gram-negative bacteria; J96.01 Acute respiratory failure with hypoxia; J47.0 Bronchiectasis with acute lower respiratory infection; J47.1 Bronchiectasis with (acute) exacerbation; D64.9 Anemia, unspecified; R65.20 Severe sepsis without septic shock; B97.89 Other viral agents as the cause of diseases classified elsewhere; I10 Essential (primary) hypertension; M19.90 Unspecified osteoarthritis, unspecified site; G89.29 Other chronic pain; M54.5 Low back pain; Z88.5 Allergy status to narcotic agent; Z79.82 Long term (current) use of aspirin; Z79.899 Other long term (current) drug therapy; Z96.652 Presence of left artificial knee joint
CPT/HCPCS: 36415; 71045; 71275; 80048; 80053; 81003; 81015; 82550; 82553; 82805; 83605; 83690; 83880; 84484; 85025; 85379; 85610; 85730; 87040; 87070; 87086; 87205; 87633; 87798; 87804; 90471; 90682; 93005; 94150; 94640; 94644; 94660; 96361; 96365; 96366; 96368; 96375; A4216; G0008; G8978-GP-CL; G8979-GP-CK; G8996-GN-CH; G8997-GN-CH; J0692; J0696; J1100; J1650; J1956; J2543; J3475; J7050; J7506; J7611; J7620; Q2036; S0028

== ENCOUNTER 2017-12-03 11:01 | Outpatient (CLI) | payer MEDICARE, BC ==
--- NOTE | 2017-12-03 12:05 | CT ---
CT OF THE CHEST WITHOUT CONTRAST: COMPARISON: 08/23/17. HISTORY: Pneumonia. TECHNIQUE: Multiple contiguous axial images were obtained in a CT of the chest without contrast. Coronal reform ats were performed. FINDINGS: There is a calcified granuloma in a small azygous lobe in the right upper thorax. No other pulmonary nodules are seen. No focal infiltrates seen in the lungs. No pneumothorax or pleural effusion are seen. No pneumothorax or pleural effusion are seen. The heart is normal in size. No hilar or mediastinal lymphadenopathy are appreciated, but evaluation is limited without IV contrast. There are calcified mediastinal lymph nodes. There is a hypodensity in the liver which likely represents a cyst. A hyperdensity along the lateral aspect of the left kidney may represent a hyperdense cyst. Calcifications in the spleen are likely from prior granulomatous disease. The patient is status post cholecystectomy. The other visualized subdiaphragmatic structures are unremarkable. Degenerative changes are seen in the spine. The chest wall soft tissues are unremarkable. IMPRESSION: 1. No evidence of pneumonia. 2. Hepatic cyst. 3. Likely small left renal hyperdense cyst. POS: [facility]
== END 2017-12-03 11:02 | disposition home or self-care (01) ==
LOC: CT 11:01
PROVIDERS: ATTEND Internal Medicine
DX: J18.9 Pneumonia, unspecified organism (principal); K76.89 Other specified diseases of liver
CPT/HCPCS: 71250

== ENCOUNTER 2018-01-23 11:27 | Outpatient (CLI) | payer MEDICARE, BC ==
[2018-01-23 14:19] LABS: #Basophils 0.1 thou/uL (0.0-0.2); #Eosinphils 0.2 thou/uL (0.0-0.7); #Lymphocytes 2.6 thou/uL (1.20-3.40); #Monocytes 0.6 thou/uL (0.11-0.59); #Neutrophils 4.5 thou/uL (1.40-6.50); %Basophils 1.4 % (0.0-1.0); %Lymphocytes 32.4 % (21.0-51.0); %Monocytes 7.4 % (0.0-10.0); %Neutrophils 55.8 % (42.0-75.0); Hemoglobin 12.6 g/dL (12.0-16.0); Mean Corpuscular HGB CONC 33.7 g/dL (32.0-36.0); Mean Corpuscular Hemoglobin 30.5 pg (27.0-31.0); Mean Corpuscular Volume 90.4 fl (81.0-99.0); Mean Platelet Volume 7.6 fL (7.4-10.4); Platelet Count 318 thou/uL (130-400); RBC Distribution Width 13.1 % (11.5-14.5); Red Blood Cell (RBC) Count 4.13 mill/uL (4.20-5.40); White Blood Cell (WBC) Count 8.1 thou/uL (4.8-10.8)
[2018-01-23 14:20] LABS: Bilirubin Negative (Negative); Blood, Urine Negative (Negative); Clarity CLEAR (Clear); Glucose, Urine (Dipstick) Negative (Negative); Leukocyte Negative (Negative); Nitrite Negative (Negative); Protein, Urine (Dipstick) Negative (Neg-Trace); Specific Gravity, Urine 1.015 (1.002-1.036); Urobilinogen 0.2 mg/dL (0.2-1.0)
[2018-01-23 14:27] LABS: INR-International Normal Ratio 0.9; Prothrombin Time 12.5 SEC (12.0-14.7)
[2018-01-23 14:33] LABS: Bacteria/HPF None Seen HPF (None Seen); Hyaline Casts/LPF 0-3 HYALINE CAST LPF (0-3 Hyaline); RBC/HPF 0-3 HPF (0-3); Squamous Epithelial None Seen HPF (0-3); WBC/HPF None Seen HPF (0-3)
[2018-01-23 14:52] LABS: Anion Gap 15 mmol/L (10-20); BUN (Urea Nitrogen) 29 mg/dL (9.8-20.1); Calc. Creatinine Clearance 0 mL/min (70-130); Calcium 9.7 mg/dL (7.8-10.44); Carbon Dioxide 25 mmol/L (23-31); Chloride 105 mmol/L (98-107); Estimated GFR-MDRD 62; Glucose 89 mg/dL (83-110); Potassium 4.6 mmol/L (3.5-5.1); Sodium 140 mmol/L (136-145)
--- NOTE | 2018-03-20 17:49 | EKG ---
Test Reason : Blood Pressure : / mmHG Vent. Rate : 062 BPM Atrial Rate : 062 BPM P-R Int : 196 ms QRS Dur : 092 ms QT Int : 412 ms P-R-T Axes : 065 009 042 degrees QTc Int : 418 ms Normal sinus rhythm Inferior infarct , age undetermined Abnormal ECG When compared with ECG of 23-AUG-2017 14:28, Vent. rate has decreased BY 42 BPM Confirmed by PEREZ TRUJILLO M.D. ([id number] on 03/20/2018 5:48:57 PM Referred By: GLADIS Confirmed By:PEREZ TRUJILLO M.D.
== END 2018-01-23 11:28 | disposition home or self-care (01) ==
LOC: LABBT 11:27
PROVIDERS: ATTEND Orthopaedic Surgery
DX: Z01.818 Encounter for other preprocedural examination (principal); M17.11 Unilateral primary osteoarthritis, right knee
CPT/HCPCS: 80048; 81001; 85025; 85610; 85730; 86850; 86900; 86901; 87081; 87086; 93005; 93010

== ENCOUNTER 2018-01-28 08:32 | Inpatient (IN) | payer MEDICARE, BC ==
[2018-01-23 12:00] VITALS: BMI 26.2
--- NOTE | 2018-01-24 08:38 | HP ---
HISTORY OF PRESENT ILLNESS: The patient is an 88-year-old female with a long history of progressive degenerative arthritis of the right knee unresponsive to conservative treatment including rest, restr iction of activities, lifestyle adjustments, NSAIDs and previous several injections. The pain is pro gressive to the point of interfering with day-to-day activities including walking, getting dressed an d sleeping. PAST MEDICAL HISTORY: Please see the old chart. The patient underwent left total knee replacement i 2012 with good results. She has a history of hypertension and arthritis. She does have a history of pneumonia and respiratory failure earlier this year and this was treated by Dr. Barahona and this w ith resolution and she has been seen and cleared for surgery. CT scan revealed resolution of pneumon ia and resolution of the mediastinal lymph node. CURRENT MEDICATIONS: Include amlodipine, aspirin 81 mg, calcium, multivitamins, alprazolam. She was initially going to have surgery last summer, but this was canceled because of the superficial infection in her opposite leg. Preoperative studies at that time did reveal 1 positive screen for M RSA. Prior to this surgery she has been treated with Hibiclens baths and Bactroban nasal ointment. ALLERGIES: CODEINE, HYDROCODONE, ADHESIVE TAPE and PREDNISONE. FAMILY HISTORY/SOCIAL HISTORY/REVIEW OF SYSTEMS: Otherwise, unremarkable. The patient is normally independent and is normally quite active. PHYSICAL EXAMINATION: GENERAL: Elderly, but healthy female. HEENT: Unremarkable. NECK: Supple. CHEST: Clear. HEART: Regular rate and rhythm. ABDOMEN: Soft, nontender. PELVIC/RECTAL/BREAST: Exams are deferred. EXTREMITIES: Pertinent findings of the right knee. There is mild to moderate valgus deformity. The re is no definite effusion. There is tenderness and crepitus over the lateral joint line. Range of motion is 0-120 degrees. There is no instability. There are palpable distal pulses. Neurovascular exam is intact. There is a right antalgic gait. X-RAY FINDINGS: X-rays of the right knee reveal bone on bone collapse laterally. IMPRESSION: 1. Degenerative arthritis, right knee. 2. Status post left total knee replacement. 3. History of hypertension. 4. History of pneumonia, resolved. PLAN: Right total knee replacement. The nature of the surgery, length of recovery, and potential co mplications as infection, loss of motion, incomplete relief, delayed wound healing, neurovascular inj ury, thromboembolic phenomena, possible transfusion, and need for revision have been discussed in det ail.
[2018-01-28] MEDS ORDERED: Midazolam HCl 2 mg/2 ml Vial ONE (10:19)
[2018-01-28] MEDS ORDERED: Ropivacaine 0.5% HCl/PF (150 MG/30 ML VIAL) ONE (10:19)
[2018-01-28] MEDS ORDERED: Bupivacaine 0.25% HCL 30 ML VIAL ONE (10:19)
[2018-01-28] MEDS ORDERED: Fentanyl 100 MCG/2 ML VIAL ONE ×3 (10:19→14:38)
[2018-01-28] MEDS ORDERED: CEFAZOLIN/Water 2 GM/20 ML SYRINGE ONE (10:20)
[2018-01-28] MEDS ORDERED: Sodium Chloride 0.9% 0 ML ONE (10:20)
[2018-01-28] MEDS ORDERED: Sodium Chloride 0.9% 100 ML ONE (10:21)
[2018-01-28] MEDS ORDERED: Fentanyl 100 MCG/2 ML VIAL IV PRN (10:53)
[2018-01-28] MEDS ORDERED: Ondansetron HCl/PF 4 MG/2 ML Vial IVP PRN ×3 (10:53→15:26)
[2018-01-28] MEDS ORDERED: Promethazine HCl 25 MG/ML VIAL IM PRN ×2 (10:53→12:47)
[2018-01-28] MEDS ORDERED: Zolpidem Tartrate 5 MG TAB PO PRN ×2 (10:53→15:26)
[2018-01-28] MEDS ORDERED: HYDROcodone/Acetaminophen 10/325 mg Tablet PO PRN ×2 (10:53)
[2018-01-28] MEDS ORDERED: traMADol HCl 50 MG TAB PO PRN ×2 (10:53→15:26)
[2018-01-28] MEDS ORDERED: BUPIVACAINE IM SCH (11:15)
[2018-01-28] MEDS ORDERED: BUPIVACAINE FS SCH ×3 (11:15→11:30)
[2018-01-28] MEDS ORDERED: ADMIXTURE FEE IM SCH (11:15)
[2018-01-28] MEDS ORDERED: SODIUM CHLORIDE FS SCH ×5 (11:15→11:30)
[2018-01-28] MEDS ORDERED: SODIUM CHLORIDE IM SCH (11:15)
[2018-01-28] MEDS ORDERED: BUPIVACAINE 0.75% FS SCH ×2 (11:30)
[2018-01-28] MEDS ORDERED: ADMIXTURE FEE FS SCH ×4 (11:30)
[2018-01-28] MEDS ORDERED: Bupivacaine 0.75% 33.3 ML in Sodium Chloride 0.9% 66.7 ML NERVE BLCK SCH (11:45)
[2018-01-28] MEDS ORDERED: ePHEDrine/0.9% NaCl/PF SYRINGE 50 mg/10 ml ONE (12:13)
[2018-01-28] MEDS ORDERED: Ondansetron HCl/PF 4 MG/2 ML Vial ONE (12:13)
[2018-01-28] MEDS ORDERED: Lidocaine 1% PF 5 ML VIAL ONE (12:13)
[2018-01-28] MEDS ORDERED: PROPOFOL 200 MG/20 ML VIAL ONE (12:13)
[2018-01-28] MEDS ORDERED: Promethazine HCl 25 MG/ML VIAL SLOW IVP PRN ×2 (12:47→15:26)
[2018-01-28] MEDS ORDERED: Bupivacaine/Epinephrine 0.25% 30 ML VIAL ONE (13:07)
[2018-01-28] MEDS ORDERED: Tranexamic Acid 1,000 MG in Sodium Chloride 0.9% 100 ML IVPB SCH ×2 (14:15→15:26)
[2018-01-28] MEDS ORDERED: Promethazine HCl 25 MG/ML VIAL ONE (14:29)
[2018-01-28] MEDS ORDERED: Acetaminophen 325 MG TAB PO PRN (15:26)
[2018-01-28] MEDS ORDERED: Fentanyl 100 MCG/2 ML VIAL SLOW IVP PRN ×2 (15:26)
[2018-01-28] MEDS ORDERED: diphenhydrAMINE 25 MG CAP PO PRN (15:26)
--- NOTE | 2018-01-28 15:48 | RAD ---
RIGHT KNEE TWO VIEWS: 01/28/2018 HISTORY: Evaluate knee following arthroplasty. COMPARISON: None. FINDINGS: There is postoperative gas in the soft tissues anterior to the right knee, as well as within the supr apatellar bursa. There is fluid within the suprapatella bursa as well. The bones are demineralized. The patient is status post total knee arthroplasty with no evidence for hardware failure or acute f racture. IMPRESSION: Status post right total knee arthroplasty. POS: [facility]
[2018-01-28] MEDS ORDERED: Scopolamine 1.5 mg/72 hour Patch TOP PRN (15:56)
[2018-01-28] MEDS: ALPRAZolam 0.5 MG TAB PO PRN (16:15)
--- NOTE | 2018-01-28 16:16 | OP ---
DATE OF PROCEDURE: 01/28/2018 PREOPERATIVE DIAGNOSIS: End-stage tricompartmental osteoarthritis, right knee. POSTOPERATIVE DIAGNOSIS: End-stage tricompartmental osteoarthritis, right knee. OPERATIVE PROCEDURE: Computer-assisted navigated cemented right total knee arthroplasty. SURGEON: Justen Shaw M.D. SENIOR DATABASE ADMINISTRATOR: Ochoa Davidson PA-C. ANESTHESIA: General via LMA augmented with indwelling femoral block and single shot sciatic block, l ocal infiltration with Marcaine. COMPONENTS USED: [employer] Triathlon primary size 5 cemented femoral component, primary si ze 5 cemented tibial component, 9 mm polyethylene fixed bearing insert and A32 patellar button. TOURNIQUET TIME: 70 minutes at 300 mmHg. FLUIDS: 1000 of crystalloid. OUTPUT: 500-600 mL of clear yellow urine via [place]. ESTIMATED BLOOD LOSS: Less than 100. FINDINGS: End-stage severe degenerative tricompartmental disease, bone on bone arthrosis, periarticu lar osteophyte formation, large serous effusion and changes consistent with degenerative genu valgum. DRAINS: None. SPECIMENS: None. COMPLICATIONS: None. COUNTS: Correct. INDICATIONS FOR SURGERY: Jen is an 88-year-old white female who has had progressive right knee pain amplified with standing and walking for the last 5-7 years. She has failed conservative management and elected to proceed with total knee arthroplasties as definitive treatment of her pain. PROCEDURE IN DETAIL: After informed consent was obtained in the preoperative holding area. The gabriele ent was taken to the operative suite where general anesthesia was induced. Once adequate level of ge neral anesthesia was obtained, the patient was positioned and a well-padded tourniquet was placed bob und the right proximal thigh. The right lower extremity was then prepped and draped in the usual cecily rile fashion. Prior to exsanguination, a time out was called and all members of the surgical team ag [place] upon site, surgeon, and patient. The extremity was then exsanguinated and the tourniquet was ra ised. A midline longitudinal incision was then made directly over the patella extending two fingerbr eadths above the superior pole of the patella and two fingerbreadths inferior to the inferior patella r pole of the patella. Deeper subcutaneous layers were dissected sharply and local bleeding was cont rolled with Bovie electrocautery. A quad tendon longitudinal split was then made sharply and a media n parapatellar arthrotomy was carried out both sharp and with Bovie electrocautery, carried down to o ne fingerbreadth medial to the tibial tubercle. The knee was then placed into flexion and the patell a was everted nicely, and a copious fat pad ectomy was performed allowing for greater exposure of the tibia. The computer-assisted distal femoral fiducial was then placed and pinned firmly, and the dis angela femoral cutting guide was pinned firmly into place. The oscillating saw was then used to remove the appropriate amount of bone. The 4-in-1 cutting block was then placed on the distal femur and the oscillating saw was used to remove the appropriate amount of bone off of the anterior, posterior, an d chamfer cuts. After completion of bone cuts, the anterior cruciate ligament was resected sharply a nd the posterior cruciate ligament retractor was placed and the tibia was subluxed for better exposur e. Partial meniscectomies were carried out, and the tibial computer-assisted fiducial was pinned, an d the cutting guide was placed. Oscillating saw was then used to remove the bone with Hohmann retrac tors used to take care and protect the collateral ligaments. After the tibial resection was performe d, a laminar domestic violence counselor was placed in between the freshened bone cuts. The knee placed at 90 degrees a nd further bilateral meniscectomies were carried out, and the curved osteotome and curettage was used to remove any excess bone spurs in the posterior compartment. The trial femoral component, tibial b aseplate were placed with the appropriate polyethylene trial insert with an appropriate polyethylene spacer and patellar button. The knee was taken through full range of motion with flexion and extensi on from 0-90 degrees and patellar broach squarely in the trochlea without any squinting or subluxatio n noted. The knee was also stable to varus and valgus stressing at 0, 15, 45 and 90 degrees of flexi on. The drawer was negative. All trial components were then removed and the keel punch was used to provide the appropriate defect in the tibia with a mallet. The freshened bone cuts were copiously ir rigated with pulsatile lavage of about 1-1/2 liters to remove all excess debris. The freshened bone cuts were then dried and with suction and lap sponge. The knee was placed in flexion and retractors were placed to provide access to all bone cuts. Tobramycin impregnated methyl methacrylate cement wa s then placed on the freshened bone cuts and implants which were malleted firmly into place. Curetta ge and [place] elevators were used to remove any excess bone cement. The knee was placed into full ext ension and the patellar button was placed under compression, and the cement was allowed to cure. Onc e completed, the components were again taken through full range of motion and copious irrigation of t he knee was carried out with another liter of normal saline. All components were inspected fully wit h full range of motion and varus and valgus stressing. There was no laxity noted and full extension w as observed clinically. Primary closure was accomplished with #2 interrupted Vicryl stitch of the ar throtomy defect. This was oversewn with a #2 running Quill barbed stitch. The subcutaneous layer wa s then closed with a running 0 barbed Monocryl stitch and skin closure accomplished with a running nazario bcuticular 3-0 Monocryl barbed Quill stitch and augmented with cement on the skin. Tourniquet was lo wered. Good spontaneous return of distal pulses was noted clinically and a sterile dressing was appl ied to the incision. The procedure was terminated without any complications. The patient was awaken ed in the operative suite and taken to the recovery room in stable condition.
[2018-01-28] MEDS: Ketorolac Tromethamine 30 MG/ML VIAL IVP PRN (16:28)
[2018-01-28] MEDS: Sodium Chloride 0.9% 1,000 ML IV SCH (16:35)
[2018-01-28] MEDS: CEFAZOLIN/Water 2 GM/20 ML SYRINGE SLOW IVP SCH (18:48)
[2018-01-28] MEDS ORDERED: Vancomycin HCl 1 GM in Premix Bag 1 BAG IVPB SCH ×2 (19:00→23:00)
[2018-01-28] MEDS: Mupirocin 2% Ointment 22 GM Tube TOP SCH (20:32)
[2018-01-28] MEDS: Aspirin 81 mg Enteric Coated Tablet PO SCH (20:32)
[2018-01-28] MEDS: traMADol HCl 50 MG TAB PO PRN (20:35)
--- NOTE | 2018-01-29 01:13 | CON ---
DATE OF CONSULTATION: 01/28/2018 PRIMARY CARE PHYSICIAN: Dr. Huey Owen. PRIMARY ADMITTING TEAM: Ortho, Dr. Shaw. REASON FOR CONSULTATION: Medical management. HISTORY OF PRESENT ILLNESS: This is an 88-year-old white female, who was brought in for a right tota l knee arthroplasty by Dr. Shaw done earlier today. We are now being consulted for medical manageme nt. The patient reports that she has been doing well since the surgery. She felt a little bit shaky after not having eaten anything at all since last night, but had some crackers when she got here and is feeling much better, had a little nausea, but no vomiting and that has resolved. Her knee is sta rting to hurt her a little bit since anesthesia is wearing off from the surgery. Otherwise, no other complaints. PAST MEDICAL HISTORY: 1. Hypertension. 2. Osteoarthritis. 3. Chronic low back pain. 4. Previous screen for MRSA last summer, treated with Hibiclens bath and Bactroban nasal ointment pr ior to the surgery. PAST SURGICAL HISTORY: 1. Appendectomy. 2. Tonsillectomy. 3. Partial hysterectomy. 4. Cholecystectomy. 5. Left total knee arthroplasty last year. 6. Bilateral inguinal hernia repair with some recurrent pain from the left-sided mesh in recent year s. 7. Cataract surgery. SOCIAL HISTORY: Patient stopped smoking 52 years ago. A rare glass of wine. No other regular alcoh ol use, no illicit drugs. She lives independently by herself. FAMILY HISTORY: Several family members with hypertension and arthritis. No significant family histo ry of coronary artery disease, cancer, or strokes. ALLERGIES: 1. HYDROCODONE. 2. CODEINE causes itching. 3. ADHESIVE TAPE. 4. PREDNISONE. CURRENT MEDICATIONS: 1. Aspirin 81 mg daily. 2. Alprazolam 0.5 mg as needed. 3. Amlodipine 10 mg daily. 4. Biotin 2500 mcg daily. 5. Caltrate 600 plus vitamin D 1 tab p.o. daily. 6. Mupirocin 2% ointment in alternating naris b.i.d. REVIEW OF SYSTEMS: Constitutional: No fevers, no chills. Eyes: No double vision or blurred vision . ENT: No congestion, drainage, or sore throat. Pulmonary: No coughing, wheezing, shortness of br eath. Cardiovascular: No chest pain, no palpitations or racing heart. Gastrointestinal: No abdomi nal pain. She has a little bit of nausea, really no vomiting, it has now resolved. No diarrhea or c onstipation. Genitourinary: No dysuria or hematuria. Musculoskeletal: She has chronic low back pa in and then pain in her right knee leading up to surgery. Skin: No rashes or other lesions she has noted. Neurologic: No numbness, tingling, or focal weakness. PHYSICAL EXAMINATION: VITAL SIGNS: Blood pressure 137/73, pulse 86, respirations 20, O2 sat 100% on room air. No temperat ure collected by the nursing staff as yet. GENERAL: This is a well-developed, well-nourished, elderly white female, in no acute distress. HEENT EXAM: Pupils equal, round, and reactive to light. Oropharynx clear without lesions, erythema, or exudate. NECK: Supple, no lymphadenopathy, no thyroid nodules or enlargement, no JVD. HEART: Regular rate and rhythm. She does have a 2/6 systolic ejection murmur at the left sternal quentin rder. LUNGS: Clear to auscultation bilaterally. No wheezes, crackles, or rhonchi. ABDOMEN: Soft, nontender to palpation, normoactive bowel sounds, no hepatosplenomegaly or other mass es. EXTREMITIES: No clubbing, cyanosis, or edema. She does have a surgical dressing over her right knee and has good intact peripheral pulses below the knee. SKIN: No rashes or lesions noted. NEUROLOGIC: She has intact sensation in all extremities. Good strength in all extremities. No faci al droop. LABORATORY DATA: CBC within normal limits. Coagulation profile normal. Basic metabolic panel was w ithin normal limits. Urinalysis was negative. ASSESSMENT: 1. Osteoarthritis, status post right total knee replacement, doing well postoperatively. 2. Previous positive methicillin-resistant Staphylococcus aureus screen. The patient was treated wi th vancomycin preoperatively and got a Hibiclens bath and Bactroban prior to presentation to the hosp ital. 3. Hypertension. Resume patient's home medications. 4. Gastrointestinal prophylaxis. We will put patient on Pepcid twice a day. 5. Deep venous thrombosis prophylaxis. The patient is in sequential compression devices and TEDs. 6. Code status. I did discuss this with the patient. She is a FULL CODE. Should she be incapacita ian, she states that her daughter, Mayra Palacios, will become her medical power of chief growth officer.
[2018-01-29] MEDS: Sodium Chloride 0.9% 1,000 ML IV SCH ×3 (01:37→20:43)
[2018-01-29] MEDS: Bupivacaine 0.75% 33.3 ML in Sodium Chloride 0.9% 66.7 ML NERVE BLCK SCH ×2 (02:56→15:01)
[2018-01-29] MEDS: CEFAZOLIN/Water 2 GM/20 ML SYRINGE SLOW IVP SCH (02:57)
[2018-01-29] MEDS: traMADol HCl 50 MG TAB PO PRN ×2 (03:00→20:35)
[2018-01-29 05:11] LABS: Hemoglobin 10.4 g/dL (12.0-16.0); Mean Corpuscular HGB CONC 33.7 g/dL (32.0-36.0); Mean Corpuscular Hemoglobin 30.5 pg (27.0-31.0); Mean Corpuscular Volume 90.7 fl (81.0-99.0); Mean Platelet Volume 7.4 fL (7.4-10.4); Platelet Count 259 thou/uL (130-400)
[2018-01-29] MEDS: Aspirin 81 mg Enteric Coated Tablet PO SCH ×2 (08:26→20:31)
[2018-01-29] MEDS: Senokot S 8.6-50 MG TAB PO SCH ×2 (08:26→20:31)
[2018-01-29] MEDS: ALPRAZolam 0.5 MG TAB PO PRN (08:26)
[2018-01-29] MEDS: Multivitamin W/ Minerals 1 TAB PO SCH (08:26)
[2018-01-29] MEDS: Famotidine 20 MG TAB PO SCH (08:26)
[2018-01-29] MEDS: Calcium Carbonate + Vit D 1 TAB PO SCH (08:27)
[2018-01-29] MEDS: Ferrous Gluconate 324 MG TAB PO SCH ×2 (08:27→20:31)
[2018-01-29] MEDS: Mupirocin 2% Ointment 22 GM Tube TOP SCH ×2 (08:50→20:32)
[2018-01-29] MEDS ORDERED: Biotin [Biotin] 2,500 MCG PO SCH (09:00)
[2018-01-29] MEDS ORDERED: Amlodipine 10 MG TAB PO SCH (09:00)
[2018-01-29] MEDS: Ketorolac Tromethamine 30 MG/ML VIAL IVP PRN (09:16)
--- NOTE | 2018-01-29 19:59 | PDOC.PN ---
- Subjective Encounter Start Date: 01/29/18 Encounter Start Time: 19:00 Patient seen and examined for med mngt. No new complaints. No overnight events - Objective MAR Reviewed: Yes Vital Signs & Weight: Vital Signs (12 hours) Temp Pulse Resp BP BP Pulse Ox 01/29/18 12:05 97.9 F 91 16 118/60 97 01/29/18 08:27 63 116/69 Weight Admit Weight 158 lb Weight 158 lb I&O: 01/28/18 01/29/18 01/30/18 06:59 06:59 06:59 Intake Total 3526 1050 Output Total 2750 500 Balance 776 550 Result Diagrams: 01/29/18 04:38 Additional Labs: Laboratory Tests 01/23/18 13:41 Creatinine 0.86 EKG Reviewed by me: Yes (SR) Phys Exam - Physical Examination Constitutional: NAD Respiratory: no wheezing, no rhonchi Dx/Plan (1) Hypertension Code(s): I10 - ESSENTIAL (PRIMARY) HYPERTENSION Status: Chronic Plan: Cont Amlodipine. Hold for SBP <120 Comment: Well controlled, On Home Medications. (2) CKD (chronic kidney disease) stage 2, GFR 60-89 ml/min Code(s): N18.2 - CHRONIC KIDNEY DISEASE, STAGE 2 (MILD) Status: Chronic Comment: Will clsoley moniotr, if No urine output, will do In/OUT cath. Monitor urine output. (3) Anxiety Code(s): F41.9 - ANXIETY DISORDER, UNSPECIFIED Status: Chronic Plan: Cont PRN Xanax - Plan DVT proph w/SCDs Review of Systems - Medications/Allergies Allergies/Adverse Reactions: Allergies Allergy/AdvReac Type Severity Reaction Status Date / Time adhesive tape Allergy Intermediate REDNESS, Verified 02/13/17 13:09 BRUISES EASILY hydrocodone Allergy Mild NOSE RED Verified 02/13/17 13:09 AND ITCHY codeine Allergy Verified 01/23/18 12:03 prednisone Allergy Anxiety Verified 08/24/17 22:46 Medications: Current Medications Acetaminophen (Tylenol) 650 mg PO Q4H PRN PRN Reason: BREWER/ T > 101F; Mild Pain (1-3) Alprazolam (Xanax) 0.5 mg PO DAILYPRN PRN PRN Reason: Anxiety Last Admin: 01/29/18 08:26 Dose: 0.5 mg Amlodipine Besylate (Norvasc) 10 mg PO DAILY [facility] Last Admin: 01/29/18 08:27 Dose: 10 mg Aspirin (Ecotrin) 81 mg PO BID [facility] Last Admin: 01/29/18 08:26 Dose: 81 mg Calcium/Vitamin D (Caltrate 600 + Vit D) 1 tab PO DAILY [facility] Last Admin: 01/29/18 08:27 Dose: 1 tab Diphenhydramine HCl (Benadryl) 25 mg PO Q6H PRN PRN Reason: Itching Famotidine (Pepcid) 20 mg PO DAILY [facility] Last Admin: 01/29/18 08:26 Dose: 20 mg Fentanyl (Sublimaze) 50 mcg SLOW IVP Q30MIN PRN PRN Reason: Moderate Pain (4-6) Fentanyl (Sublimaze) 100 mcg SLOW IVP Q1H PRN PRN Reason: Severe Pain (7-10) Ferrous Gluconate (Fergon) 324 mg PO BID [facility] Last Admin: 01/29/18 08:27 Dose: 324 mg Bupivacaine HCl 33.3 ml/ (Sodium Chloride) 100 mls @ 8 mls/hr NERVE BLCK INF [facility] Last Admin: 01/29/18 15:01 Dose: 100 mls Sodium Chloride (Normal Saline 0.9%) 1,000 mls @ 100 mls/hr IV .Q10H [facility] Last Admin: 01/29/18 12:15 Dose: Not Given Iron/Minerals/Multivitamins (Theragran M) 1 tab PO DAILY [facility] Last Admin: 01/29/18 08:26 Dose: 1 tab Ketorolac Tromethamine (Toradol) 15 mg IVP Q6H PRN PRN Reason: Moderate Pain (4-6) Stop: 01/31/18 10:54 Last Admin: 01/29/18 09:16 Dose: 15 mg Mupirocin (Bactroban 2% Ointment) 0 gm TOP BID [facility] Last Admin: 01/29/18 08:50 Dose: 1 applic Ondansetron HCl (Zofran) 4 mg IVP Q6H PRN PRN Reason: Nausea/Vomiting Last Admin: 01/28/18 16:16 Dose: 4 mg Promethazine HCl (Phenergan) 12.5 mg IM Q4H PRN PRN Reason: Nausea Promethazine HCl (Phenergan) 12.5 mg SLOW IVP Q4H PRN PRN Reason: Nausea/Vomiting Scopolamine (Transderm Scop) 1.5 mg TOP ONE PRN PRN Reason: Nausea/Vomiting Stop: 01/31/18 15:55 Senna/Docusate Sodium (Senokot S) 2 tab PO BID [facility] Last Admin: 01/29/18 08:26 Dose: 2 tab Sodium Chloride (Flush - Normal Saline) 10 ml IVF PRN PRN PRN Reason: Saline Flush Tramadol HCl (Ultram) 50 mg PO Q6H PRN PRN Reason: Mild Pain (1-3) Tramadol HCl (Ultram) 100 mg PO Q6H PRN PRN Reason: Moderate Pain 4-6 Last Admin: 01/29/18 03:00 Dose: 100 mg Zolpidem Tartrate (Ambien) 5 mg PO HSPRN PRN PRN Reason: Insomnia
[2018-01-30] MEDS: Bupivacaine 0.75% 33.3 ML in Sodium Chloride 0.9% 66.7 ML NERVE BLCK SCH (03:54)
[2018-01-30] MEDS: traMADol HCl 50 MG TAB PO PRN ×3 (04:01→16:05)
[2018-01-30] MEDS: Sodium Chloride 0.9% 1,000 ML IV SCH ×2 (05:43→15:04)
[2018-01-30] MEDS: Famotidine 20 MG TAB PO SCH (08:44)
[2018-01-30] MEDS: Ferrous Gluconate 324 MG TAB PO SCH ×2 (08:44→20:53)
[2018-01-30] MEDS: Senokot S 8.6-50 MG TAB PO SCH ×2 (08:44→20:53)
[2018-01-30] MEDS: Mupirocin 2% Ointment 22 GM Tube TOP SCH ×2 (08:45→20:53)
[2018-01-30] MEDS: Calcium Carbonate + Vit D 1 TAB PO SCH (08:45)
[2018-01-30] MEDS: Multivitamin W/ Minerals 1 TAB PO SCH (08:45)
[2018-01-30] MEDS: Aspirin 81 mg Enteric Coated Tablet PO SCH ×2 (08:45→20:53)
[2018-01-30] MEDS: Amlodipine 10 MG TAB PO SCH (08:45)
[2018-01-30] MEDS: ALPRAZolam 0.5 MG TAB PO PRN (12:06)
--- NOTE | 2018-01-30 14:20 | PDOC.PN ---
- Subjective Encounter Start Date: 01/30/18 Encounter Start Time: 13:00 Patient is seen today, alert and oriented. She has pain controlled with Block. No urine after taking out catheter. - Objective MAR Reviewed: Yes Vital Signs & Weight: Vital Signs (12 hours) Temp Pulse Resp BP BP Pulse Ox 01/30/18 11:50 98.2 F 90 16 136/67 92 L 01/30/18 08:45 90 102/65 01/30/18 07:50 97.4 F L 90 14 92 L 01/30/18 07:43 97.4 F L 90 14 102/65 92 L 01/30/18 04:00 98.2 F 91 18 110/66 95 Weight Admit Weight 158 lb Weight 158 lb I&O: 01/29/18 01/30/18 01/31/18 06:59 06:59 06:59 Intake Total 3526 1530 96 Output Total 2750 1700 Balance 776 -170 96 Result Diagrams: 01/29/18 04:38 Radiology Reviewed by me: Yes Phys Exam - Physical Examination HEENT: PERRLA, moist MMs Neck: no nodes, no JVD Respiratory: no wheezing, no rales Cardiovascular: no significant murmur Gastrointestinal: soft, non-tender Musculoskeletal: no edema Dx/Plan (1) CKD (chronic kidney disease) stage 2, GFR 60-89 ml/min Code(s): N18.2 - CHRONIC KIDNEY DISEASE, STAGE 2 (MILD) Status: Chronic Comment: Will clsoley moniotr, if No urine output, will do In/OUT cath. Monitor urine output. (2) Anemia, normocytic normochromic Code(s): D64.9 - ANEMIA, UNSPECIFIED Status: Chronic Comment: Stbale, Will continue to Monitor. (3) Hypertension Code(s): I10 - ESSENTIAL (PRIMARY) HYPERTENSION Status: Chronic Comment: Well controlled, On Home Medications. 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 Review of Systems - Review of Systems Eyes: negative: Pain, Vision Change, Conjunctivae Inflammation, Eyelid Inflammation, Redness, Other ENT: negative: Ear Pain, Ear Discharge, Nose Pain, Nose Discharge, Nose Congestion, Mouth Pain, Mouth Swelling, Throat Pain, Throat Swelling, Other Respiratory: negative: Cough, Dry, Shortness of Breath, Hemoptysis, SOB with Excertion, Pleuritic Pain, Sputum, Wheezing Cardiovascular: negative: chest pain, palpitations, orthopnea, paroxysmal nocturnal dyspnea, edema, light headedness, other Genitourinary: Retention Musculoskeletal: negative: Neck Pain, Shoulder Pain, Arm Pain, Back Pain, Hand Pain, Leg Pain, Foot Pain, Other - Medications/Allergies Allergies/Adverse Reactions: Allergies Allergy/AdvReac Type Severity Reaction Status Date / Time adhesive tape Allergy Intermediate REDNESS, Verified 02/13/17 13:09 BRUISES EASILY hydrocodone Allergy Mild NOSE RED Verified 02/13/17 13:09 AND ITCHY codeine Allergy Verified 01/23/18 12:03 prednisone Allergy Anxiety Verified 08/24/17 22:46 Medications: Current Medications Acetaminophen (Tylenol) 650 mg PO Q4H PRN PRN Reason: BREWER/ T > 101F; Mild Pain (1-3) Alprazolam (Xanax) 0.5 mg PO DAILYPRN PRN PRN Reason: Anxiety Last Admin: 01/30/18 12:06 Dose: 0.5 mg Amlodipine Besylate (Norvasc) 10 mg PO DAILY [facility] Last Admin: 01/30/18 08:45 Dose: 10 mg Aspirin (Ecotrin) 81 mg PO BID [facility] Last Admin: 01/30/18 08:45 Dose: 81 mg Calcium/Vitamin D (Caltrate 600 + Vit D) 1 tab PO DAILY [facility] Last Admin: 01/30/18 08:45 Dose: 1 tab Diphenhydramine HCl (Benadryl) 25 mg PO Q6H PRN PRN Reason: Itching Famotidine (Pepcid) 20 mg PO DAILY [facility] Last Admin: 01/30/18 08:44 Dose: 20 mg Fentanyl (Sublimaze) 50 mcg SLOW IVP Q30MIN PRN PRN Reason: Moderate Pain (4-6) Fentanyl (Sublimaze) 100 mcg SLOW IVP Q1H PRN PRN Reason: Severe Pain (7-10) Ferrous Gluconate (Fergon) 324 mg PO BID [facility] Last Admin: 01/30/18 08:44 Dose: 324 mg Bupivacaine HCl 33.3 ml/ (Sodium Chloride) 100 mls @ 8 mls/hr NERVE BLCK INF [facility] Last Admin: 01/30/18 03:54 Dose: 100 mls Sodium Chloride (Normal Saline 0.9%) 1,000 mls @ 100 mls/hr IV .Q10H [facility] Last Admin: 01/30/18 05:43 Dose: Not Given Iron/Minerals/Multivitamins (Theragran M) 1 tab PO DAILY [facility] Last Admin: 01/30/18 08:45 Dose: 1 tab Ketorolac Tromethamine (Toradol) 15 mg IVP Q6H PRN PRN Reason: Moderate Pain (4-6) Stop: 01/31/18 10:54 Last Admin: 01/29/18 09:16 Dose: 15 mg Mupirocin (Bactroban 2% Ointment) 0 gm TOP BID [facility] Last Admin: 01/30/18 08:45 Dose: 1 applic Ondansetron HCl (Zofran) 4 mg IVP Q6H PRN PRN Reason: Nausea/Vomiting Last Admin: 01/28/18 16:16 Dose: 4 mg Promethazine HCl (Phenergan) 12.5 mg IM Q4H PRN PRN Reason: Nausea Promethazine HCl (Phenergan) 12.5 mg SLOW IVP Q4H PRN PRN Reason: Nausea/Vomiting Scopolamine (Transderm Scop) 1.5 mg TOP ONE PRN PRN Reason: Nausea/Vomiting Stop: 01/31/18 15:55 Senna/Docusate Sodium (Senokot S) 2 tab PO BID [facility] Last Admin: 01/30/18 08:44 Dose: 2 tab Sodium Chloride (Flush - Normal Saline) 10 ml IVF PRN PRN PRN Reason: Saline Flush Tramadol HCl (Ultram) 50 mg PO Q6H PRN PRN Reason: Mild Pain (1-3) Tramadol HCl (Ultram) 100 mg PO Q6H PRN PRN Reason: Moderate Pain 4-6 Last Admin: 01/30/18 10:36 Dose: 100 mg Zolpidem Tartrate (Ambien) 5 mg PO HSPRN PRN PRN Reason: Insomnia
[2018-01-31] MEDS: Sodium Chloride 0.9% 1,000 ML IV SCH ×2 (03:28→12:12)
[2018-01-31] MEDS: ALPRAZolam 0.5 MG TAB PO PRN ×2 (04:15→12:12)
[2018-01-31] MEDS: traMADol HCl 50 MG TAB PO PRN (04:15)
[2018-01-31] MEDS: Mupirocin 2% Ointment 22 GM Tube TOP SCH (09:03)
[2018-01-31] MEDS: Aspirin 81 mg Enteric Coated Tablet PO SCH (09:04)
[2018-01-31] MEDS: Ferrous Gluconate 324 MG TAB PO SCH (09:04)
[2018-01-31] MEDS: Amlodipine 10 MG TAB PO SCH (09:04)
[2018-01-31] MEDS: Senokot S 8.6-50 MG TAB PO SCH (09:04)
[2018-01-31] MEDS: Calcium Carbonate + Vit D 1 TAB PO SCH (09:04)
[2018-01-31] MEDS: Famotidine 20 MG TAB PO SCH (09:04)
[2018-01-31] MEDS: Multivitamin W/ Minerals 1 TAB PO SCH (09:04)
--- NOTE | 2018-01-31 14:34 | PDOC.PN ---
- Subjective Encounter Start Date: 01/31/18 Encounter Start Time: 13:15 Patient is seen today, alert and oriented. No other concenr snoted. pt pain is well controlled with ramadol. - Objective MAR Reviewed: Yes Vital Signs & Weight: Vital Signs (12 hours) Temp Pulse Resp BP Pulse Ox 01/31/18 11:38 98.1 F 104 H 16 94/58 L 94 L 01/31/18 08:00 98.3 F 105 H 16 01/31/18 07:51 98.3 F 105 H 16 123/72 93 L 01/31/18 04:00 98.2 F 100 20 109/66 93 L Weight Admit Weight 158 lb Weight 158 lb I&O: 01/30/18 01/31/18 02/01/18 06:59 06:59 06:59 Intake Total 1530 1476 Output Total 1700 Balance -170 1476 Result Diagrams: 01/29/18 04:38 Radiology Reviewed by me: Yes Phys Exam - Physical Examination HEENT: PERRLA, moist MMs Neck: no nodes, no JVD Respiratory: no wheezing, no rales Cardiovascular: RRR, no significant murmur Gastrointestinal: soft, non-tender Musculoskeletal: no edema, pulses present Neurological: non-focal, normal sensation Dx/Plan (1) CKD (chronic kidney disease) stage 2, GFR 60-89 ml/min Code(s): N18.2 - CHRONIC KIDNEY DISEASE, STAGE 2 (MILD) Status: Chronic Comment: Will clsoley moniotr, if No urine output, will do In/OUT cath. Monitor urine output. (2) Anemia, normocytic normochromic Code(s): D64.9 - ANEMIA, UNSPECIFIED Status: Chronic Comment: Stbale, Will continue to Monitor. (3) Hypertension Code(s): I10 - ESSENTIAL (PRIMARY) HYPERTENSION Status: Chronic Comment: Well controlled, On Home Medications. - Plan cont current plan of care, plan discussed w/ family, orozco catheter, respiratory therapy, incentive spirometry, DVT proph w/SCDs * . Review of Systems - Review of Systems Eyes: negative: Pain, Vision Change, Conjunctivae Inflammation, Eyelid Inflammation, Redness, Other ENT: negative: Ear Pain, Ear Discharge, Nose Pain, Nose Discharge, Nose Congestion, Mouth Pain, Mouth Swelling, Throat Pain, Throat Swelling, Other Respiratory: negative: Cough, Dry, Shortness of Breath, Hemoptysis, SOB with Excertion, Pleuritic Pain, Sputum, Wheezing Cardiovascular: negative: chest pain, palpitations, orthopnea, paroxysmal nocturnal dyspnea, edema, light headedness, other Gastrointestinal: negative: Nausea, Vomiting, Abdominal Pain, Diarrhea, Constipation, Melena, Hematochezia, Other Genitourinary: negative: Dysuria, Frequency, Incontinence, Hematuria, Retention , Other Musculoskeletal: negative: Neck Pain, Shoulder Pain, Arm Pain, Back Pain, Hand Pain, Leg Pain, Foot Pain, Other - Medications/Allergies Allergies/Adverse Reactions: Allergies Allergy/AdvReac Type Severity Reaction Status Date / Time adhesive tape Allergy Intermediate REDNESS, Verified 02/13/17 13:09 BRUISES EASILY hydrocodone Allergy Mild NOSE RED Verified 02/13/17 13:09 AND ITCHY codeine Allergy Verified 01/23/18 12:03 prednisone Allergy Anxiety Verified 08/24/17 22:46 Medications: Current Medications Acetaminophen (Tylenol) 650 mg PO Q4H PRN PRN Reason: BREWER/ T > 101F; Mild Pain (1-3) Alprazolam (Xanax) 0.5 mg PO DAILYPRN PRN PRN Reason: Anxiety Last Admin: 01/31/18 12:12 Dose: 0.5 mg Amlodipine Besylate (Norvasc) 10 mg PO DAILY [facility] Last Admin: 01/31/18 09:04 Dose: 10 mg Aspirin (Ecotrin) 81 mg PO BID [facility] Last Admin: 01/31/18 09:04 Dose: 81 mg Calcium/Vitamin D (Caltrate 600 + Vit D) 1 tab PO DAILY [facility] Last Admin: 01/31/18 09:04 Dose: 1 tab Diphenhydramine HCl (Benadryl) 25 mg PO Q6H PRN PRN Reason: Itching Famotidine (Pepcid) 20 mg PO DAILY [facility] Last Admin: 01/31/18 09:04 Dose: 20 mg Fentanyl (Sublimaze) 50 mcg SLOW IVP Q30MIN PRN PRN Reason: Moderate Pain (4-6) Fentanyl (Sublimaze) 100 mcg SLOW IVP Q1H PRN PRN Reason: Severe Pain (7-10) Ferrous Gluconate (Fergon) 324 mg PO BID [facility] Last Admin: 01/31/18 09:04 Dose: 324 mg Bupivacaine HCl 33.3 ml/ (Sodium Chloride) 100 mls @ 8 mls/hr NERVE BLCK INF [facility] Last Admin: 01/30/18 03:54 Dose: 100 mls Sodium Chloride (Normal Saline 0.9%) 1,000 mls @ 100 mls/hr IV .Q10H [facility] Last Admin: 01/31/18 12:12 Dose: Not Given Iron/Minerals/Multivitamins (Theragran M) 1 tab PO DAILY [facility] Last Admin: 01/31/18 09:04 Dose: 1 tab Mupirocin (Bactroban 2% Ointment) 0 gm TOP BID [facility] Last Admin: 01/31/18 09:03 Dose: 1 applic Ondansetron HCl (Zofran) 4 mg IVP Q6H PRN PRN Reason: Nausea/Vomiting Last Admin: 01/28/18 16:16 Dose: 4 mg Promethazine HCl (Phenergan) 12.5 mg IM Q4H PRN PRN Reason: Nausea Promethazine HCl (Phenergan) 12.5 mg SLOW IVP Q4H PRN PRN Reason: Nausea/Vomiting Scopolamine (Transderm Scop) 1.5 mg TOP ONE PRN PRN Reason: Nausea/Vomiting Stop: 01/31/18 15:55 Senna/Docusate Sodium (Senokot S) 2 tab PO BID [facility] Last Admin: 01/31/18 09:04 Dose: 2 tab Sodium Chloride (Flush - Normal Saline) 10 ml IVF PRN PRN PRN Reason: Saline Flush Tramadol HCl (Ultram) 50 mg PO Q6H PRN PRN Reason: Mild Pain (1-3) Tramadol HCl (Ultram) 100 mg PO Q6H PRN PRN Reason: Moderate Pain 4-6 Last Admin: 01/31/18 04:15 Dose: 100 mg Zolpidem Tartrate (Ambien) 5 mg PO HSPRN PRN PRN Reason: Insomnia
[2018-01-31 16:23] VITALS: BP 97/61; TEMP 97.3
== END 2018-01-31 16:42 | DRG 470 ==
LOC: SDC 08:32 → SJJU 15:23
PROVIDERS: ADMIT Orthopaedic Surgery; ATTEND Orthopaedic Surgery
PROC: 0SRC0J9 Replacement of Right Knee Joint with Synthetic Substitute, Cemented, Open Approach (ICD-10-PCS; principal; 2018-01-28)
DX: M17.11 Unilateral primary osteoarthritis, right knee (principal); G89.29 Other chronic pain; M54.9 Dorsalgia, unspecified; I12.9 Hypertensive chronic kidney disease with stage 1 through stage 4 chronic kidney disease, or unspecified chronic kidney disease; N18.9 Chronic kidney disease, unspecified; D64.9 Anemia, unspecified; F41.9 Anxiety disorder, unspecified; Z90.49 Acquired absence of other specified parts of digestive tract; Z90.710 Acquired absence of both cervix and uterus; Z96.652 Presence of left artificial knee joint; Z88.5 Allergy status to narcotic agent; Z88.8 Allergy status to other drugs, medicaments and biological substances; Z79.82 Long term (current) use of aspirin; Z79.899 Other long term (current) drug therapy
CPT/HCPCS: 36415; 85027; C1713; C1776; G8978-GP-CL; G8979-GP-CJ; G8987-GO-CK; G8988-GO-CH; J1885; J2001; J2250; J2405; J2550; J2704; J2795; J3010; J3370; J3490; J7050; S0020

== ENCOUNTER 2019-03-31 11:59 | Emergency (ER) | payer MEDICARE, BC ==
[2019-03-31 12:58] LABS: #Basophils 0.1 thou/uL (0.0-0.2); #Lymphocytes 1.8 thou/uL (1.20-3.40); #Monocytes 0.6 thou/uL (0.11-0.59); #Neutrophils 7.7 thou/uL (1.40-6.50); %Basophils 0.6 % (0.0-1.0); %Eosinophils 0.4 % (0.0-10.0); %Lymphocytes 17.3 % (21.0-51.0); %Monocytes 5.8 % (0.0-10.0); %Neutrophils 75.8 % (42.0-75.0); Hemoglobin 12.7 g/dL (12.0-16.0); Mean Corpuscular Hemoglobin 30.4 pg (27.0-31.0); Mean Platelet Volume 7.4 fL (7.4-10.4); Platelet Count 330 thou/uL (130-400); RBC Distribution Width 12.6 % (11.5-14.5); Red Blood Cell (RBC) Count 4.17 mill/uL (4.20-5.40); White Blood Cell (WBC) Count 10.1 thou/uL (4.8-10.8)
[2019-03-31 13:12] LABS: Bilirubin Negative (Negative); Blood, Urine Negative (Negative); Clarity Clear (Clear); Glucose, Urine (Dipstick) Normal (Negative); Leukocyte Negative Leu/uL (Negative); Nitrite Negative (Negative); Protein, Urine (Dipstick) Negative (Neg-Trace); Urobilinogen Normal mg/dL (Less than 2)
[2019-03-31 13:19] LABS: Anion Gap 12 mmol/L (10-20); BUN (Urea Nitrogen) 33 mg/dL (9.8-20.1); Calc. Creatinine Clearance 0 mL/min (70-130); Carbon Dioxide 26 mmol/L (23-31); Chloride 103 mmol/L (98-107); Estimated GFR-MDRD 48; Potassium 4.5 mmol/L (3.5-5.1); Sodium 136 mmol/L (136-145)
[2019-03-31 13:20] LABS: ALT (SGPT) 12 U/L (8-55); AST (SGOT) 14 U/L (5-34); Albumin 4.2 g/dL (3.4-4.8); Alkaline Phosphatase 78 U/L (40-150); Bilirubin, Total 0.4 mg/dL (0.2-1.2); Calcium 9.2 mg/dL (7.8-10.44); Globulin 3.1 g/dL (2.4-3.5); Glucose 98 mg/dL (83-110); Lipase 21 U/L (8-78); Protein, Total 7.3 g/dL (6.0-8.3)
--- NOTE | 2019-03-31 18:04 | CT ---
CT Abdomen Pelvis WO Con HISTORY: Left lower quadrant pain. History of cholecystectomy appendectomy and hysterectomy. Also her leoncio repair. COMPARISON: 04/29/2007 study. Also review is made of a 12/03/2017 CT of the chest. FINDINGS: The lung bases are clear of infiltrative process. A 1.8 cm hypodense lesion within the left lobe of the liver is most likely a cyst. It has enlarged as compared to the previous exams. The spleen and pancreas regions are unremarkable. The gallbladder has been removed. Right and left adrenal glands are normal in appearance. The right and left kidneys are normal in size there is some minimal dilatation to the left collecting system and proximal left ureter. At the level of the pelvic brim there is a calcification potentially within the ureter at this level althoug h it may be vascular in nature, it is difficult to separate the ureter from vessels at this level. Clinical correlation as to whether patient's pain is possibly related to renal colic. There is no sig nificant periaortic or mesenteric adenopathy. There is a mild amount of stool throughout the colon. Sigmoid diverticulosis is noted without inflammatory change. No pelvic lymphadenopathy or mass. IMPRESSION: 1. Minimal dilatation the left collecting system and proximal left ureter with a questionable small c alculus within the left ureter at the level the pelvic brim. This could be an adjacent vascular calcification, clinical correlation as to whether the patient has renal colic type symptoms. 2. Sigmoid diverticulosis without evidence of inflammatory change.
== END 2019-03-31 19:10 | disposition home or self-care (01) ==
LOC: ERS 11:59
DX: N20.0 Calculus of kidney (principal); I10 Essential (primary) hypertension; F41.9 Anxiety disorder, unspecified; Z79.82 Long term (current) use of aspirin; Z79.899 Other long term (current) drug therapy
CPT/HCPCS: 36415; 74176; 80053; 81003; 83690; 85025